=== PATIENT | male | born 1955 | race Caucasian/White ===

== ENCOUNTER 2024-08-05 13:11 | Outpatient (CLI) | payer MEDICARE, SELFPAY ==
--- NOTE | ~2024-08-05 | PE_ITS ---
EXAMINATION: PET_PETPSMAST_PT DATE: 08/05/2024 15:47 INDICATION: Prostate cancer TECHNIQUE: 5.144 mCi of Illucix Ga-68([id number]) was administered i.v. Low dose computed shante graphy (CT) images were acquired from the base of the brain to the base of the brain to the proximal thighs for attenuation correction and anatomic localization. Positron emission tomography (PET) image s were acquired in the same distribution beginning 86 minutes after injection. Images including fused PET/CT images were reconstructed in axial, coronal, and sagittal planes. Automated exposure control technique was employed. The dose-length product was 1142.24mGy-cm. COMPARISON: None FINDINGS: Head/neck: Typical pattern of symmetric physiologic increased activity in the lacrimal, parotid and submandibula r glands as well as along the mucosa of the nasal and oral cavities, pharynx and hypopharynx. No path ologically enlarged cervical lymphadenopathy or suspicious foci of increased uptake in the visualized head or neck. Chest: Respiratory motion and mild scattered atelectasis in the bilateral lungs. No suspicious pulmonary nod ules, pneumonia, pulmonary edema or pleural effusion. Borderline heart size. Atherosclerotic coronary artery calcification. No pericardial effusion. Aortic valve repair. Thoracic aorta is normal in lottie carroll. No pathologically enlarged or PMSA avid thoracic lymphadenopathy. Abdomen/pelvis/proximal thighs: Physiologic renal accumulation and excretion of activity in the kidneys, bladder and along portions o f ureters. For millimeter nonobstructing stone at the upper pole of the left kidney. Prostatomegaly w ith couple regions of asymmetric increased activity in the larger and slightly more intense anteroinf eriorly with right-sided predominance and maximal SUV of 4.8 and smaller left posterolateral region w ith maximal SUV of 4.3 consistent with primary prostate cancer. Normal degree and slightly heterogeno us pattern of increased uptake throughout the liver and spleen without radiologic correlate or domina nt PSMA avid lesion. The gallbladder, pancreas and bilateral adrenal glands are normal. Moderate upta ke scattered throughout the bowels with typical duodenal and proximal jejunal predominance and withou t radiologic correlate, also likely physiologic. There is prominent scattered diverticulosis with taina cending and sigmoid colon predominance without adjacent inflammatory stranding to suggest diverticuli tis. Normal appendix. No other abnormal foci of increased uptake or pathologically enlarged lymphaden opathy in the abdomen, pelvis or proximal thighs. Vascular stent extending from the distalmost right common femoral to the proximal superficial femoral artery. Musculoskeletal: Extensive bridging a nearly bridging osteophytes at multiple levels the cervical, thoracic and lumbar spine consistent with diffuse idiopathic skeletal hyperostosis (DISH). No suspicious lytic, blastic or abnormally PSMA avid bone lesions identified. Small focus of likely extravasated uptake at the sit e of injection at the right antecubital fossa. IMPRESSION: 1. Couple small regions of mild increased activity in the prostate consistent with primary prostate c ancer. No lesion suspicious for metastatic disease. Reviewed, dictated and finalized at location B. NURSE IMPRESSION: 1. Couple small regions of mild increased activity in the prostate consistent w ith primary prostate cancer. No lesion suspicious for metastatic disease.
--- OUTSIDE RECORDS SUMMARY | 2024-08-05 15:04 | XMS_ITS | Encounter Summary ---
Author Organization [facility] Healthcare Address [address] [place] [address] Care Team Providers Care Scarifier Operator Name Role Phone Ludmila Turpin MD Primary Care Provider + [phone] Alon Rich MD Unavailable [phone] Esau Sykes Unavailable Unavail able Monster Kline MD Unavailable [phone] Esau Thompson OD Unavailable [phone] Carlos Galarza MD Unavailable Brandee Albright MD Unavailable [phone] Taylor Serna MD Unavailable [phone] Adrian Theodore MD Unavailable Cong Zuniga MD Unavailable [phone] Calista Galvez MD Unavailable [phone] Ivan Orozco MD Unavailable [phone] Symone Sue MD Unavailable Mihir Henson OD Unavailable [phone] Carlos Frias DO Unavailable [phone] Triny Granados MD Unavailable Triny Granados MD Unavailable [phone] Miguel Angel Man MD PhD Unavailable [phone] Judson Foster Unavailable [phone] Reason for Visit * Reason Onset Date Comments Scheduling Appointments 01/20/2021 confirme d dexa Encounter Details Date Type Department Care Team (Late st Contact Info) Description 01/20/2021 Telephone [facility] [address] [place] [id number] Fatmata Wisdom RT Scheduling Appointments (confirmed dexa) Social History Tobacco Use Types Packs/Day Years Used Date Smoking Tobacco: Never Smokeless Tobacco: Never Alcohol Use Standard Drinks/Week Comments Yes 0 (1 standard drink = 0.6 oz pur e alcohol) ocassional PHQ-2 Answer Date Recorded PHQ-2 Total Score (If total score is 3 or more points, staff should administer the PHQ-9) 0 10/28/2020 Sex and Gender Information Value Date Recorded Sex Assigned at Not on file Legal Sex Male 12:05 PM SHRIMP HEADER Gender Identity Male 04/25/2020 6:16 AM SHRIMP HEADER Sexual Orientation Straight 04/25/2020 6: 16 AM SHRIMP HEADER 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 Not on file Not on file Not on file documented as of this encounter Plan of Treatment Not on file documented as of this encounter Visit Diagnoses Not on filedocumented in this encounter Care Teams Scarifier Operator Relationship Specialty Start Date End Date Ludmila Turpin MD PCP - General 10/14/11 Alon Rich MD Consulting Physician Cardiovascular Disease 07/06/17 1 07/13/21 Esau Sykes Gastroenterology 07/06/17 12/13/22 Monster Kline MD [address] [facility] [address] [place] [address] Thoracic Surgery 07/06/17 Esau Thompson OD [address] [place] [address] Ophthalmology 07/10/17 12/13/22 Carlos Galarza MD [address] [place] [address] Cardiology 07/10/17 Brandee Albright MD [address] [place] [address] Referring Physician Dermatology 01/16/19 Taylor Serna MD [address] [place] [address] Consulting Physician Neurosurgery 10/28/20 11/01/21 Adrian Theodore MD [address] [place] [address] Consulting Physician Pain Management 04/30/21 Cong Zuniga MD [address] [place] [address] Referring Physician Neurosurgery 11/02/21 12/13/22 Calista Galvez MD [address] [place] [address] Consulting Physician Bone Health 11/02/21 Ivan Orozco MD [address] [place] [address] Consulting Physician Urology 05/13/22 07/31/24 Symone Sue MD [address] [place] [address] [address] Consulting Physician Gastroenterology 12/14/22 [place] GeenaMARCO sanchez [address] [place] [address] Optometry 12/14/22 Carlos Frias DO [address] [place] [address] Consulting Physician Neurosurgery 12/14/22 Triny Granados MD [address] [place] [address] Consulting Physician Urology 07/29/24 Triny Granados MD [address] [place] [address] Consulting Physician Urology 08/01/24 Miguel Angel Man MD PhD [address] [facility] DEPT NEUROLOGICAL SURGERY [place], [place] [id number] Consulting Physician Neurosurgery 08/01/24 Judson Foster PA [address] [facility] [address] [place], [place] [id number] Physician Boy'S Adviser Neurosurgery 08/01/24 documented as of this encounter
--- OUTSIDE RECORDS SUMMARY | 2024-08-05 15:04 | XMS_ITS | Encounter Summary ---
Author Organization [facility] Address [address] [place] [address] Care Team Providers Care Lamps Tester And Inspector Name Role Phone Ludmila Turpin MD Primary Care Provider + [phone] Monster Kline MD Unavailable [phone] Carlos Galarza MD Unavailable Brandee Albright MD Unavailable [phone] Adrian Theoodre MD Unavailable Calista Galvez MD Unavailable [phone] Ivan Orozco MD Unavailable [phone] Symone Sue MD Unavailable Sixto Geenadaniel LARA Unavailable [phone] Carlos Frias DO Unavailable [phone] Triny Granados MD Unavailable [phone] Triny Granados MD Unavailable [phone] Miguel Angel Man MD PhD Unavailable Judson Foster Unavailable [phone] Reason for Referral * Diagnostic Imaging (Routine) - Closed Specialty Diagnoses / Procedures Referred By Contac t Referred To Contact Diagnoses Spinal enthesopathy (HCC) Myalgia, other site Procedures Imaging Trigger Point INJ 3+ Muscle Groups () Adrian Theodore MD [address] [place] [address] Phone: tel: fax: [facility] [address] [phone] Referral ID Status Reason Start Date Expiration Date Visits Re quested Visits Authorized [id number] Closed 07/31/2023 10/29/2023 1 1 NESS ACCOUNT EXECUTIVE Encounter Details Date Type Department Care Team (Late st Contact Info) Description 07/12/2023 Telephone [facility] [address] [address], [address] [place] [phone] Adrian Theodore MD [address] [place] [address] Social History Tobacco Use Types Packs/Day Years Used Date Smoking Tobacco: Never Smokeless Tobacco: Never Alcohol Use Standard Drinks/Week Comments Yes 0 (1 standard drink = 0.6 oz pur e alcohol) ocassional AUDIT-C Answer Date Recorded Q1: How often do you have a drink containing alc ohol? 2-4 times a month 05/22/2023 Q2: How many drinks containi ng alcohol do you have on a typical day when you are drinking? 1 or 2 05/22/2023 Q3: How often do you have si x or more drinks on one occasion? Never 05/22/2023 PHQ-2 Answer Date Recorded PHQ-2 Total Score (If total score is 3 or more points, staff should administer the PHQ-9) 0 12/14/2022 Hunger Vital Sign Answer Date Recorded Within the past 12 months, y ou worried that your food would run out before you got the money to buy more. Never true 12/06/19 23 Within the past 12 months, t he food you bought just didn't last and you didn't have money to get more. Never true 12/05/2022 Personal Safety Answer Date Recorded Have you ever been in or are you currently in a harmful physical or emotional relationship or is someone making you feel afraid or unsafe? 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 Author CCM Chronic Pain Care Plan Chronic Care Management No change(03/21 9:12 AM CDT) No Any Fox, RUFINA Note: Problem: Chronic Pain Goals: 1. Minimize further functional decline 2. Maximize quality of life 3. Control pain Strategies: - Activity/exercise program recommendation - Conservative stepwise pain medicine strategy with multi-disciplinary approach - Recommend healthy lifestyle strategies and compensatory methods as needed Reduce the likelihood of falling Lifestyle Improving( 8:02 AM CDT) No Any Fox RN Note: Below are four things you can do to prevent falls: Begin an exercise program to improve your leg strength & balance Ask your doctor or pharmacist to review your medicines Get annual eye check-ups & update your eyeglasses Make your home safer by: Removing clutter & tripping hazards Putting railings on all stairs & adding grab bars in the bathroom Having good lighting, especially on stairs Contact your local community or senior center for information on exercise, fall prevention programs, or options for improving home safety. documented as of this encounter Results * Imaging Trigger Point INJ 3+ Muscle Groups () (07/31/2023 8:16 AM BUSINESS ACCOUNT EXECUTIVE) Narrative [facility] - 07/31/2023 8:30 AM BUSINESS ACCOUNT EXECUTIVE The images from this study are not interpreted by Radiology. Please refer to the physician's procedure / OR operative note. us Adrian Theodore MD IMG PAIN MGMT PROCEDURES Final Result Performing Organization Address City/State/[facility] Co de Phone Number RAD_[email or web address] documented in this encounter Visit Diagnoses Diagnosis Spinal enthesopathy (HCC)- Primary Spinal enthesopathy Myalgia, other site Left shoulder pain, unspecified chronicity- Primary Spinal enthesopathy (HCC) Spinal enthesopathy Myalgia, other site documented in this encounter Care Teams Lamps Tester And Inspector Relationship Specialty Start Date End Date Ludmila Turpin MD PCP - General 10/14/11 Monster Kline MD [address] [place] [address] Thoracic Surgery 07/06/17 Carlos Galarza MD [address] [place] [address] Cardiology 07/10/17 Brandee Albright MD [address] [place] [address] Referring Physician Dermatology 01/16/19 Adrian Theodore MD [address] [place] [address] Consulting Physician Pain Management 04/30/21 Calista Galvez MD [address] [place] [address] Consulting Physician Bone Health 11/02/21 Ivan Orozco MD [address] [place] [address] Consulting Physician Urology 05/13/22 07/31/24 Symone Sue MD [address] [place] [address] [address] Consulting Physician Gastroenterology 12/14/22 Mihir Henson OD [address] [place] [address] Optometry 12/14/22 Carlos Frias DO [address] [place] [address] Consulting Physician Neurosurgery 12/14/22 Triny Granados MD [address] [place] [address] Consulting Physician Urology 07/29/24 Triny Granados MD [address] [place] [address] Consulting Physician Urology 08/01/24 Miguel Angel Man [place] PhD [address] [facility] [place] [address] Consulting Physician Neurosurgery 08/01/24 Judson Foster PA [address] [facility] [address] [place] [address] Physician Frame Expander Neurosurgery 08/01/24 documented as of this encounter
--- OUTSIDE RECORDS SUMMARY | 2024-08-05 15:04 | XMS_ITS | Clinical Summary ---
Author Organization [facility] Address [address] [facility] [place] [address] Care Team Providers Care Lab Associate Name Role Phone Eneida Turpin MD Primary Care Provider [phone] Source Comments [facility],non-owned Affiliates and Associated Physician Practices is amultiple site organization consisting of ambulatory clinics and hospital sitesin [place], [place], [place] and [place]. This disclosure is being madepursuant to the Care Everywhere program and may not contain all information available regarding this patient. Last updated 18.[facility] Allergies Active Allergy Reactions Criticality Noted Date Comments Acetaminophen 05/19/2014 Medications * Be aware that medications may not be up to date on this document. Alwaysverify current medications with the patient. Medication Sig Dispensed Refills Start Date End Date Status carvedilol (COREG) 3.125 MG tablet Take 3.125 mg by mouth 2 times daily with morning and evening meal. Active clopidogrel (PLAVIX) 75 MG tablet Take 75 mg by mouth once daily. Active lisinopril (PRINIVIL;ZESTRIL) 5 MG tablet Take 5 mg by mouth once daily. Active atorvastatin (LIPITOR) 40 MG tablet Take 40 mg by mouth at bedtime. Active aspirin (ASPIRIN) 325 MG tablet Take 325 mg by mouth once daily. Active Vitamin D3 (CHOLECALCIFEROL) 2000 UNITS CAPS capsule Take 2,000 Units by mouth once daily. Active gabapentin (NEURONTIN) 300 MG capsuleIndications: Insomnia Take 1-2 Caps by mouth at bedtime. 60 Cap 6 05/19/2014 Active meloxicam (MOBIC) 7.5 MG tabletIndications:B ack pain Take 1-2 Tabs by mouth once daily. for 7 days to treat flare ups of pain and inflammation Repeat as needed or call Dr Geronimo if not better 30 Tab 6 05/19/2014 Active Active Problems No known active problems Social History Tobacco Use Types Packs/Day Years Used Date Smoking Tobacco: Never Smokeless Tobacco: Never Tobacco Cessation:Counseling Given: No Alcohol Use Standard Drinks/Week Comments No 0 (1 standard drink = 0.6 oz pur e alcohol) Sex and Gender Information Value Date Recorded Sex Assigned at Not on file Gender Identity Not on file Sexual Orientation Not on file Last Filed Vital Signs Vital Sign Reading Time Taken Comments Blood Pressure 110/60 09/03/2014 1:43 PM CDT Pulse 75 09/03/2014 1:43 PM CDT Temperature - - Respiratory Rate - - Oxygen Saturation - - Inhaled Oxygen Concentration - - Weight 100.7 kg (222 lb) 09/03/2014 1:43 PM CDT Height 180.3 cm (5' 11 ) 09/03/2014 1:43 PM CDT Body Mass Index 30.96 09/03/2014 1:43 PM CDT Plan of Treatment Health Maintenance Due Date Last Done Comments COLOGUARD (AGES 45-75) - COLON CA SCREENING 1954 COLON MONITORING 1954 COLONOSCOPY - COLON CA SCREENING 1954 CT COLONOGRAPHY - COLON CA SCREENING 1954 Colorectal Cancer Screening 1954 FIT - COLON CA SCREENING 1954 FLEX SIG - COLON CA SCREENING 1954 HEPATITIS C SCREENING 07/12/1972 DTAP/TDAP/TD VACCINES (1 - Tdap) 1973 PNEUMOCOCCAL VACCINE 50+ (1 of 1 - PCV) 2004 ZOSTER VACCINE (1 of 2) 2004 COVID-19 VACCINE (4 - 2023- season) 2024 04/26/2021, 09/02/2020, 08/13/2020 INFLUENZA VACCINE (#1) 2024 , 03/12/2019, 02/24/2017, Additional history exists DEPRESSION SCREENING 06/12/2024 Respiratory Syncytial Virus (RSV) Vaccine Pt: or over 60 yrs (1 - 1-dose 75+ series) 2029 HEPATITIS B VACCINE Aged Out No longe r eligible based on patient's age to complete this topic HIB VACCINE Aged Out No longer eligi ble based on patient's age to complete this topic HPV VACCINE Aged Out No longer eligi ble based on patient's age to complete this topic MENINGOCOCCAL (Group B) VACCINE Aged Out No longer eligible based on patient's age to complete this topic MENINGOCOCCAL VACCINE Aged Out No tyrel cayetano eligible based on patient's age to complete this topic Care Teams Lab Associate Relationship Specialty Start Date End Date Eneida Turpin MD [address] [place] [phone] PCP - General Internal Medicine 05/19/14
--- OUTSIDE RECORDS SUMMARY | 2024-08-05 15:04 | XMS_ITS | Referral Summary ---
Author Organization [facility] Address [address] [place] [address] Care Team Providers Care Fine Chemicals Operator Name Role Phone Eneida Turpin MD Primary Care Provider [phone] Source Comments [facility],non-[facility] Affiliates and Associated Physician Practices is amultiple site organization consisting of ambulatory clinics and hospital sitesin [place], [place], [place] and [place]. This disclosure is being madepursuant to the Care Everywhere program and may not contain all information available regarding this patient. Last updated 18.[facility] Allergies Active Allergy Reactions Criticality Noted Date [...] 09/03/2014 1:43 PM CDT Plan of Treatment Not on file Care Teams Fine Chemicals Operator Relationship Specialty Start Date End Date Eneida Turpin MD [address] [place] [phone] PCP - General Internal Medicine 05/19/14
--- OUTSIDE RECORDS SUMMARY | 2024-08-05 15:04 | XMS_ITS | Patient Health Summary ---
Author Organization [facility] Address [address] [facility] [place] [address] Care Team Providers Care Blast Setter Name Role Phone Eneida Turpin MD Primary Care Provider [phone] Note from [facility],non-owned Affiliates and Associated Physician Practices is amultiple site organization consisting of ambulatory clinics and hospital sitesin [place], [place], [place] and [place]. This disclosure is being madepursuant to the Care Everywhere program and may not contain all information available regarding this patient. Last updated 18.[facility] Allergies * Acetaminophen Medications * Be aware that medications may not be up to date on this document. Alwaysverify current medications with the patient. * carvedilol (COREG) 3.125 MG tablet Take 3.125 mg by mouth 2 times daily with morning and evening meal. * clopidogrel (PLAVIX) 75 MG tablet Take 75 mg by mouth once daily. * lisinopril (PRINIVIL;ZESTRIL) 5 MG tablet Take 5 mg by mouth once daily. * atorvastatin (LIPITOR) 40 MG tablet Take 40 mg by mouth at bedtime. * aspirin (ASPIRIN) 325 MG tablet Take 325 mg by mouth once daily. * Vitamin D3 (CHOLECALCIFEROL) 2000 UNITS CAPS capsule Take 2,000 Units by mouth once daily. * gabapentin (NEURONTIN) 300 MG capsule(Started 05/19/2014) Take 1-2 Caps by mouth at bedtime. 6 refills left * meloxicam (MOBIC) 7.5 MG tablet(Started 05/19/2014) Take 1-2 Tabs by mouth once daily. for 7 days to treat flare ups of pain and inflammation Repeat asneeded or call Dr Geronimo if not better 6 refills left Active Problems No known active problems Social [...] Mass Index 30.96 09/03/2014 1:43 PM CDT Procedures * HLA TYPING B27(Performed 05/19/2014) Performed for Back pain * C-REACTIVE PROTEIN(Performed 05/19/2014) Performed for Back pain * ERYTHROCYTE SEDIMENTATION RATE(Performed 05/19/2014) Performed for Back pain Results * C-REACTIVE PROTEIN (05/19/2014 2:39 PM GLASS DEPOSITION TENDER) Pathologist [facility] C-Reactive Protein 1.0 0.0 - 4.9 mg/L [facility] INSURANCE BILL Blood specimen (specimen) BLOOD SPECIMEN / Unknown 05/19/2014 2:39 PM GLASS DEPOSITION TENDER 05/19/2014 7:32 PM GLASS DEPOSITION TENDER Narrative Resulting Agency Comment [address] [id number] Joaquin Geronimo MD LAB - CHEMISTRY AFSHIN SHI [facility] INSURANCE BILL * HLA TYPING B27 (05/19/2014 2:39 PM GLASS DEPOSITION TENDER) Pathologist [facility] HLA-B27 Negative [facility] INSURANCE BILL Comment: HLA-B*27 Negative [facility] Lab CLIA ID Number [id number] . This test was performed using PCR (Polymerase Chain Reaction)/SSOP (Sequence Specific Oligonucleotide Probes) technique. SBT (Sequence Based Typing) and/or SSP (Sequence Specific Primers) may be used as supplemental methods when necessary. Please contact [facility] Customer Service at if you have any questions. . Director of HLA Laboratory Dr Andrew Cueto, PhD Blood specimen (specimen) BLOOD SPECIMEN / Unknown 05/19/2014 2:39 PM GLASS DEPOSITION TENDER 05/19/2014 7:32 PM GLASS DEPOSITION TENDER Narrative Resulting Agency Comment [facility] [address] [facility] [id number] Joaquin Geronimo MD LAB - CHEMISTRY ORDE RABMARTÍNEZ [facility] INSURANCE BILL * SED RATE WESTERGREN (05/19/2014 2:39 PM GLASS DEPOSITION TENDER) Erythrocyte Sedimentation Rate Westergren 2 0 - 30 mm/hr [facility] INSURANCE BILL Blood specimen (specimen) BLOOD SPECIMEN / Unknown 05/19/2014 2:39 PM GLASS DEPOSITION TENDER 05/19/2014 7:32 PM GLASS DEPOSITION TENDER Narrative Resulting Agency Comment [facility] [address] [id number] Joaquin Geronimo MD LAB - HEMATOLOGY ORD ERABLES [facility] INSURANCE BILL Care Teams Blast Setter Relationship Specialty Start Date End Date Eneida Turpin MD [address] [place] [phone] PCP - General Internal Medicine 05/19/14
--- OUTSIDE RECORDS SUMMARY | 2024-08-05 15:04 | XMS_ITS | Encounter Summary ---
Author Organization [facility] Address [address] [place] [address] Care Team Providers Care Front End Web Designer Name Role Phone Ludmila Turpin MD Primary Care Provider + [phone] Monster Kline MD Unavailable [phone] Carlos Galarza MD Unavailable Brandee Albright MD Unavailable [phone] Adrian Theodore MD Unavailable Calista Galvez MD Unavailable [phone] Ivan Orozco MD Unavailable [phone] Symone Sue MD Unavailable Mihir Henson OD Unavailable [phone] Carlos Frias DO Unavailable [phone] Triny Granados MD Unavailable [phone] Triny Granados MD Unavailable [phone] Miguel Angel Man MD PhD Unavailable [phone] Judson Foster Unavailable [phone] Reason for Referral * Procedure (Routine) - Closed Specialty Diagnoses / Procedures Referred By Contac t Referred To Contact Diagnoses Myalgia, unspecified site Spinal enthesopathy, site unspecified Procedures TRIGGER POINT INJECTION Adrian Theodore MD [address] [facility] [address] [place] [address] Phone: tel: fax: [facility] [address] [place] [phone] Referral ID Status Reason Start Date Expiration Date Visits Re quested Visits Authorized [id number] Closed 03/24/2024 06/11/2024 1 1 Encounter Details Date Type Department Care Team (Late st Contact Info) Description 03/24/2024 Telephone [facility] [place] [facility] [address] [facility] [address] [place], [place] [id number] Adrian Theodore MD [address] [facility] [address] [place], [place] [id number] Social History Tobacco Use Types Packs/Day Years Used Date Smoking Tobacco: Never Smokeless Tobacco: Never Alcohol Use Standard Drinks/Week Comments Yes 0 (1 standard drink = 0.6 oz pur e alcohol) ocassional AUDIT-C Answer Date Recorded Q1: How often do you have a drink containing alc ohol? 2-3 times a week 12/12/2023 Q2: How many drinks containi ng alcohol do you have on a typical day when you are drinking? 1 or 2 12/12/2023 Q3: How often do you have si x or more drinks on one occasion? Never 12/12/2023 PHQ-2 Answer Date Recorded PHQ-2 Total Score (If total score is 3 or more points, staff should administer the PHQ-9) 0 01/23/2024 Hunger Vital Sign Answer Date Recorded Within [...] making you feel afraid or unsafe? 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 Author CCM Chronic Pain Care Plan Chronic Care Management No change(03/21 9:12 AM CDT) No Any Fox, RN Note: Problem: Chronic Pain Goals: 1. Minimize [...] home safety. documented as of this encounter Visit Diagnoses Diagnosis Spinal enthesopathy (HCC)- Primary Spinal enthesopathy documented in this encounter Care Teams Front End Web Designer Relationship Specialty Start Date End Date Ludmila Turpin MD PCP - General 10/14/11 Monster Kline MD [address] [place] [address] Thoracic Surgery 07/06/17 Carlos Galarza MD [address] [place] [address] Cardiology 07/10/17 Brandee Albright MD [address] [place] [address] Referring Physician Dermatology 01/16/19 Adrian Theodore MD [address] [facility] [address] [place] [address] Consulting Physician Pain Management 04/30/21 Calista Galvez MD [address] [facility] [address] [place] [address] Consulting Physician Bone Health 11/02/21 Ivan Orozco MD [address] [facility] [address] [place] [address] Consulting Physician Urology 05/13/22 07/31/24 Symone Sue MD [address] [place] [address] [address] [place], [place] [address], [place] [address] Consulting Physician Gastroenterology 12/14/22 Mihir Henson OD [address] [place] [address] Optometry 12/14/22 Carlos Frias DO [address] [place] [address] Consulting Physician Neurosurgery 12/14/22 Triny Granados MD [address] [place] [address] Consulting Physician Urology 07/29/24 Triny Granados MD 2 [place] [address] Consulting Physician Urology 08/01/24 Miguel Angel Man MD PhD [address] [facility] DEPT NEUROLOGICAL SURGERY [place], [place] [id number] Consulting Physician Neurosurgery 08/01/24 Judson Foster PA [address] DEPT NEUROLOGICAL SURGERY, [address] [id number] Physician Mobility Scooter Repairer Neurosurgery 08/01/24 documented as of this encounter
--- OUTSIDE RECORDS SUMMARY | 2024-08-05 15:04 | XMS_ITS | Encounter Summary ---
Author Organization [facility] Healthcare Address [address] [place] [address] Care Team Providers Care Permit Technician Name Role Phone Ludmila Turpin MD Primary Care Provider + [phone] Monster Kline MD Unavailable [phone] Carlos Galarza MD Unavailable Brandee Albright MD Unavailable [phone] Adrian Theodore MD Unavailable Calista Galvez MD Unavailable [phone] Ivan Orozco MD Unavailable [phone] Symone Sue MD Unavailable Mihir Henson OD Unavailable [phone] Carlos Frias DO Unavailable [phone] Triny Granados MD Unavailable [phone] Triny Granados MD Unavailable [phone] Miguel Angel Man MD PhD Unavailable [phone] Judson Foster Unavailable [phone] Encounter Details Date Type Department Care Team (Late st Contact Info) Description 07/10/2023 Telephone [facility] at [facility] [address] [facility] [address], [address] [place] [phone] Adrian Theodore MD [address] [facility] [address] [place] [address] Social History Tobacco Use Types Packs/Day Years [...] on file Legal 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 Author CCM Chronic Pain Care Plan Chronic Care Management No change(03/21 9:12 AM CDT) No Any Fox RN Note: Problem: Chronic Pain Goals: 1. Minimize further functional decline 2. Maximize quality of life 3. Control pain Strategies: - Activity/exercise program recommendation - Conservative stepwise pain medicine strategy with multi-disciplinary approach - Recommend healthy lifestyle strategies and compensatory methods as needed Reduce the likelihood of falling Lifestyle Improving( 8:02 AM CDT) Any Fung RN Note: Below are four things you [...] on stairs Contact your local community or [facility] for information on exercise, fall prevention programs, or options for improving home safety. documented as of this encounter Visit Diagnoses Not on filedocumented in this encounter Care Teams Permit Technician Relationship Specialty Start Date End Date Ludmila Turpin MD PCP - General 10/14/11 Monster Kline MD [address] [facility] [address] [place] [address] Thoracic Surgery 07/06/17 Carlos Galarza MD [address] [place] [address] Cardiology 07/10/17 Brandee Albright MD [address] [place] [address] Referring Physician Dermatology 01/16/19 Adrian Theodore MD [address] [address] Consulting Physician Pain Management 04/30/21 Calista Galvez MD [address] [facility] [address] [place] [address] Consulting Physician Bone Health 11/02/21 Ivan Orozco MD [address] [facility] [address] [place] [address] Consulting Physician Urology 05/13/22 07/31/24 Symone Sue MD [address] [place] [address] [address] Consulting Physician Gastroenterology 12/14/22 Mihir Henson OD [address] [place] [address] Optometry 12/14/22 Carlos Frias DO [address] [place] [address] Consulting Physician Neurosurgery 12/14/22 Triny Granados MD 2 [place] [address] Consulting Physician Urology 07/29/24 Triny Granados MD 2 [place] [address] Consulting Physician Urology 08/01/24 [place] Man [place] PhD [address] [facility] [place] [address] Consulting Physician Neurosurgery 08/01/24 Judson Foster PA [address] DE[address] NEUROLOGICAL SURGERY, [address] [address] Physician Ditcher Operator Neurosurgery 08/01/24 documented as of this encounter
--- OUTSIDE RECORDS SUMMARY | 2024-08-05 15:04 | XMS_ITS | Encounter Summary ---
Author Organization [facility] Healthcare Address [address] [place] [address] Care Team Providers Care Medical Chief Technician Name Role Phone Ludmila Turpin MD Primary Care Provider + [phone] Monster Kline MD Unavailable Carlos Galarza MD Unavailable Brandee Albright MD Unavailable [phone] Adrian Theodore MD Unavailable Calista Galvez MD Unavailable [phone] Ivan Orozco MD Unavailable [phone] Symone Sue MD Unavailable Mihir Henson OD Unavailable [phone] Carlos Frias DO Unavailable [phone] Triny Granados MD Unavailable [phone] Triny Granados MD Unavailable [phone] Miguel Angel Man MD PhD Unavailable Judson Foster Unavailable [phone] Encounter Details Date Type Department Care Team (Late st Contact Info) Description 07/28/2024 Results Follow-Up [facility] [address] [place] [address] Ludmila Turpin MD [address] [place] [address] Social History Tobacco Use Types Packs/Day Years Used Date Smoking Tobacco: Never Smokeless Tobacco: Never Alcohol Use Standard Drinks/Week Comments Yes 0 (1 standard drink = 0.6 oz pur e alcohol) ocassional AUDIT-C Answer Date Recorded Q1: How often do you have a drink containing alc ohol? 2-4 times a month 07/23/2024 Q2: How many drinks containi ng alcohol do you have on a typical day when you are drinking? 1 or 2 07/23/2024 Q3: How often do you have si x or more drinks on one occasion? Never 07/23/2024 PHQ-2 Answer Date Recorded PHQ-2 Total Score [...] making you feel afraid or unsafe? 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 documented as of this encounter Visit Diagnoses Not on filedocumented in this encounter Care Teams Medical Chief Technician Relationship Specialty Start Date End Date Ludmila Turpin MD PCP - General 10/14/11 Monster Kline MD [address] [place] [address] Thoracic Surgery 07/06/17 Carlos Galarza MD [address] [facility] [address] [place] [address] Cardiology 07/10/17 Brandee Albright MD [address] [place] [address] Referring Physician Dermatology 01/16/19 Adrian Theodore MD [address] [facility] [address] [place] [address] Consulting Physician Pain Management 04/30/21 Calista Galvez MD [address] [facility] [address] [place] [address] Consulting Physician Bone Health 11/02/21 Ivan Orozco MD [address] [facility] [address] [place] [address] Consulting Physician Urology 05/13/22 07/31/24 Symone Sue MD [address] [place] [address] [address] Consulting Physician Gastroenterology 12/14/22 Mihir Henson OD [address] [place] [address] Optometry 12/14/22 Carlos Frias DO [address] [place] [address] Consulting Physician Neurosurgery 12/14/22 Triny Granados MD 2 [place] [address] Consulting Physician Urology 07/29/24 Triny Granados MD 2 [place] [address] Consulting Physician Urology 08/01/24 [place] Man [place] PhD [address] [facility] DEPT [place]ICAL [place] [address] Consulting Physician Neurosurgery 08/01/24 Judson Foster PA [address] DE[address] NEUROLOGICAL SURGERY, [facility] [address] [place] [address] Physician Site Coordinator Neurosurgery 08/01/24 documented as of this encounter
--- OUTSIDE RECORDS SUMMARY | 2024-08-05 15:04 | XMS_ITS | Encounter Summary ---
Author Organization [facility] Healthcare Address [address] [place] [address] Care Team Providers Care Rf Microwave Engineer Name Role Phone Ludmila Turpin MD Primary Care Provider + [phone] Monster Kline MD Unavailable [phone] Carlos Galarza MD Unavailable Brandee Albright MD Unavailable [phone] Adrian Theodore MD Unavailable Calista Galvez MD Unavailable [phone] Ivan Orozco MD Unavailable [phone] Symone Sue MD Unavailable Mihir Henson OD Unavailable [phone] Carlos Frias DO Unavailable [phone] Triny Granados MD Unavailable [phone] Triny Granados MD Unavailable [phone] Miguel Angel Man MD PhD Unavailable [phone] Judson Foster Unavailable [phone] Encounter Details Date Type Department Care Team (Late st Contact Info) Description 08/02/2023 Telephone [facility] [place] [facility] [address] 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 documented as of this encounter Visit Diagnoses Not on filedocumented in this encounter Care Teams Rf Microwave Engineer Relationship Specialty Start Date End Date Ludmila Turpin MD PCP - General 10/14/11 Monster Kline MD [address] [facility] [address] [place] [address] Thoracic Surgery 07/06/17 Carlos Galarza MD [address] [facility] [address] [place] [address] Cardiology 07/10/17 Brandee Albright MD [address] [facility] [address] [place] [address] Referring Physician Dermatology 01/16/19 Adrian Theodore MD [address] [facility] [address] [place] [address] Consulting Physician Pain Management 04/30/21 Calista Galvez MD [address] [facility] [address] [place] [address] Consulting Physician Bone Health 11/02/21 Ivan Orozco MD [address] [facility] [address] [place] [address] Consulting Physician Urology 05/13/22 07/31/24 Symone Sue MD [address] [place] [address] [address] Consulting Physician Gastroenterology 12/14/22 Mihir Henson OD [address] [place] [address] Optometry 12/14/22 Carlos Frias DO [address] [place] [address] Consulting Physician Neurosurgery 12/14/22 Triny Granados MD 2 [place] [address] Consulting Physician Urology 07/29/24 Triny Granados MD [address] [place] [address] Consulting Physician Urology 08/01/24 [place] Man [place] PhD [address] [facility] DEPT [place] [address] Consulting Physician Neurosurgery 08/01/24 Judson Foster PA [address] DEPT NEUROLOGICAL SURGERY, [address] [address] Physician Television News Reporter Neurosurgery 08/01/24 documented as of this encounter
--- OUTSIDE RECORDS SUMMARY | 2024-08-05 15:04 | XMS_ITS | Referral Summary ---
Author Organization [facility] [address] Address [address] [place] [address] Phone Care Team Providers Care Glassware Engraver Name Role Phone Ludmila Mabry MD Primary Care Provider + [phone] Monster Kline MD Unavailable [phone] Carlos Galarza MD Unavailable Brandee Albright MD Unavailable [phone] Adrian Theodore MD Unavailable Calista Galvez MD Unavailable [phone] Symone Sue MD Unavailable Mihir Henson OD Unavailable [phone] Carlos Frias DO Unavailable [phone] Triny Granados MD Unavailable [phone] Triny Granados MD Unavailable [phone] Miguel Angel Man MD PhD Unavailable Judson Foster Unavailable [phone] Encounters Date Type Department Care Team Description 08/01/2024 11:30 AM CABIN FURNISHINGS INSTALLER Office Visit [facility] [address] [place] [address] Ludmila Mabry MD BPH with elevated PSA (Primary Dx); Prostate cancer (HCC); DISH (diffuse idiopathic skeletal hyperostosis); Spinal stenosis of lumbar region with neurogenic claudication; Lumbar foraminal stenosis; Class 1 obesity with serious comorbidity and body mass index (BMI) of 30.0 to 30.9 in adult, unspecified obesity type; Ischemic heart disease due to coronary artery obstruction (CMS/HCC) (HCC); S/p TAVR (transcatheter aortic valve replacement), bioprosthetic; S/P AVR (aortic valve replacement) and aortoplasty; Multiple-type hyperlipidemia; Other osteoporosis without current pathological fracture; Prediabetes; Immunization counseling 07/31/2024 1:12 PM CABIN FURNISHINGS INSTALLER - 07/31/2024 11:59 PM CABIN FURNISHINGS INSTALLER Hospital Encounter [facility] Imaging [address] [address] Lumbar radiculopathy Discharge Disposition: Discharge to home or self care 07/31/2024 1:12 PM CABIN FURNISHINGS INSTALLER - 07/31/2024 11:59 PM CABIN FURNISHINGS INSTALLER Hospital Encounter [facility] Imaging [address] [address] Lumbar radiculopathy Discharge Disposition: Discharge to home or self care 07/29/2024 Telephone [facility] [address] [address], [address] [place] [address] Adrian Theodore MD 2 week post op call 07/29/2024 Telephone [facility] [address] [place] [address] Joe Juarez RN 07/28/2024 Results Follow-Up [facility] [address] [place] [address] Ludmila Mabry MD 07/26/2024 8:05 AM CABIN FURNISHINGS INSTALLER Lab [facility] Laboratory [address] [place] [address] Elevated PSA; Ischemic heart disease; Medication monitoring encounter; Other osteoporosis without current pathological fracture; Obesity (BMI 30-39.9) 07/23/2024 11:05 AM CABIN FURNISHINGS INSTALLER - 07/23/2024 11:55 AM CABIN FURNISHINGS INSTALLER Surgery [facility] Operating Room [address] [place] [address] Triny Granados MD TRANSRECTAL ULTRASOUND FUSION GUIDED PROSTATE BIOPSY 07/23/2024 10:51 AM CABIN FURNISHINGS INSTALLER Anesthesia Event [facility] Operating Room [address] [place] [address] Christiano Carney MD Reynolds, Raza Akins MD 07/23/2024 8:37 AM CABIN FURNISHINGS INSTALLER - 07/23/2024 12:56 PM CABIN FURNISHINGS INSTALLER Hospital Encounter [facility] Operating Room 1 [place] [address] Triny Granados MD Elevated PSA Discharge Disposition: Discharge to home or self care 07/16/2024 Orders Only [facility] [address] [facility] 5th [place] [address] [place] [address] Calista Galvez MD Osteopenia of multiple sites (Primary Dx) 07/15/2024 7:50 AM CABIN FURNISHINGS INSTALLER - 07/15/2024 11:59 PM CABIN FURNISHINGS INSTALLER Hospital Encounter [facility] at [address], [address] [place] [address] Adrian Theodore MD Cervicalgia (Primary Dx); Myalgia Discharge Disposition: Discharge to home or self care 07/11/2024 Telephone [facility] Neurosurgery [address] [place] [address] Medical Office Building [address] [place] [address] Judson Foster PA 07/11/2024 9:33 AM CABIN FURNISHINGS INSTALLER - 07/11/2024 11:59 PM CABIN FURNISHINGS INSTALLER Hospital Encounter [facility] [address] [place] [address] [address] [place] [address] Lumbar pain Discharge Disposition: Discharge to home or self care 07/11/2024 11:00 AM CABIN FURNISHINGS INSTALLER Office Visit [facility] Neurosurgery [address] [place] [address] Medical Office Building [address] [place] [address] Judson Foster PA Lumbar radiculopathy 07/08/2024 Orders Only [facility] [id number] [place] [address] [address] [place] [phone] Margarito Galarza MD S/P TAVR (transcatheter aortic valve replacement) (Primary Dx) 07/08/2024 2:15 PM CABIN FURNISHINGS INSTALLER Office Visit [facility] [id number] [place] [address] [address] [place] [address] Margarito Galarza MD S/p TAVR (transcatheter aortic valve replacement), bioprosthetic (Primary Dx); Ischemic heart disease due to coronary artery obstruction (CMS/HCC) (HCC); Mixed hyperlipidemia; S/P ascending aortic aneurysm repair 07/08/2024 1:00 PM CABIN FURNISHINGS INSTALLER Ancillary Procedure [facility] [id number] [place] [address] [address] [place] [phone] S/p TAVR (transcatheter aortic valve replacement), bioprosthetic 07/05/2024 Orders Only [facility] [address] [facility] Medical Office Building [address] [place] [address] Miguel Angel Man MD PhD Lumbar pain (Primary Dx) 06/21/2024 Telephone [facility] [address] [place] [phone] Ludmila Mabry MD 06/21/2024 Telephone [facility] at [facility] [address] [facility] [address], [address] [place] [address] Adrian Theodore MD POST CALL 06/20/2024 8:57 AM CABIN FURNISHINGS INSTALLER - 06/20/2024 11:59 PM CABIN FURNISHINGS INSTALLER Hospital Encounter [facility] Imaging and Radiology [address] [place] [address] Elevated prostate specific antigen (PSA) Discharge Disposition: Discharge to home or self care 06/19/2024 Telephone [facility] Scheduling [address] [place], [place] [id number] Chanel Horta 06/07/2024 Telephone [facility] at [address], [address] [place] [phone] Adrian Theodore MD 06/07/2024 9:34 AM CABIN FURNISHINGS INSTALLER - 06/07/2024 11:59 PM CABIN FURNISHINGS INSTALLER Hospital Encounter [facility] at [address] [place] [phone] Adrian Theodore MD Lumbar radiculopathy (Primary Dx); Myalgia Discharge Disposition: Discharge to home or self care 06/06/2024 Telephone [facility] at [address], [address] [place] [phone] Adrian Theodore MD Eliquis hold verification 05/08/2024 8:50 AM CABIN FURNISHINGS INSTALLER Lab [facility] [address] [place] [address] from Last 3 Months Allergies Active Allergy Reactions Criticality Noted Date Comments Acetaminophen Other (See comments) Low Reaction: ELEVATES LIVER ENZYMES, unable to metabolize Tylenol Duloxetine Dizziness Low 08/19/2020 Difficulty concentrating, difficulty with vision Gabapentin Fatigue Low 10/28/2020 100 mg does not work, 200 mg cause fatigue Prochlorperazine Other (See comments) Low Reaction: NASAL CONGESTION, Tramadol Hallucinations Medium 05/13/2022 Developed complex auditory hallucinations Medications cholecalciferol (VITAMIN D-3) 2,000 unit capsule take 1 by Oral route every day 90 3 012 Active taz-[id number]-[id number] -wkc-ggkb-yip 600 mg calcium- 800 unit-50 mg tablet Take 1,200 mg by mouth daily Active atorvastatin (Lipitor) 20 mg tabletIndications :Ischemic heart disease due to coronary artery obstruction (CMS/HCC) (HCC),Multiple-ty pe hyperlipidemia Take 1 tablet (20 mg total) by mouth nightly 90 tablet 2 024 Active fluticasone propionate (FLONASE) 50 mcg/actuation nasal sprayIndications: Chronic rhinitis Administer 2 sprays into each nostril daily as needed for allergies 1 each 024 Active ipratropium (Atrovent) 21 mcg (0.03 %) nasal sprayIndications: Chronic rhinitis Administer 2 sprays into each nostril 2 (two) times a day as needed for rhinitis 30 mL 024 Active pregabalin (LYRICA) 25 mg capsule TAKE 2 CAPSULES BY MOUTH EVERY MORNING BEFORE BREAKFAST AND TAKE 3 CAPSULES BY MOUTH EVERY NIGHT 150 capsule 3 025 Active baclofen (LIORESAL) 20 mg tablet Take 1 tablet (20 mg total) by mouth 3 (three) times a day 180 tablet 2 025 Active apixaban (ELIQUIS) 5 mg tabletIndications :Valve in valve TAVR Take 1 tablet (5 mg total) by mouth every 12 (twelve) hours 60 tablet 025 Active aspirin 81 mg chewable tabletIndications :Ischemic heart disease due to coronary artery obstruction (CMS/HCC) (HCC),S/P AVR (aortic valve replacement) and aortoplasty Take 1 tablet (81 mg total) by mouth daily 100 tablet 3 025 Active lisinopriL (PRINIVIL,ZESTRIL ) 5 mg tabletIndications :Ischemic heart disease due to coronary artery obstruction (CMS/HCC) (HCC) Take 1 tablet (5 mg total) by mouth nightly 90 tablet 2 025 Active nitroglycerin (NITROSTAT) 0.4 mg SL tabletIndications :Ischemic heart disease due to coronary artery obstruction (CMS/HCC) ([facility]) Place 1 tablet under the tongue every 5 minutes as needed for chest pain; May repeat every 5 minutes for up to 3 doses. 25 tablet 025 Active tamsulosin (Flomax) 0.4 mg extended release capsuleIndication s:BPH with elevated PSA Take 1 capsule (0.4 mg total) by mouth daily 90 capsule [address] (CYMBALTA) 20 mg capsuleIndication s:DISH (diffuse idiopathic skeletal hyperostosis) Take 3 capsules (60 mg total) by mouth daily 1 in the morning and 2 at night 90 capsule 1 020 2020 Discontinued lisinopriL (PRINIVIL,ZESTRIL ) 5 mg tabletIndications :Ischemic heart disease due to coronary artery obstruction (CMS/HCC) (HCC) Take 1 tablet (5 mg total) by mouth nightly 90 tablet 2 024 2024 Discontinued(R eorder) nitroglycerin (NITROSTAT) 0.4 mg SL tabletIndications :Ischemic heart disease due to coronary artery obstruction (CMS/HCC) (HCC) Place 1 tablet under the tongue every 5 minutes as needed for chest pain; May repeat every 5 minutes for up to 3 doses. 25 tablet 11 024 2024 Discontinued(R eorder) tamsulosin (Flomax) 0.4 mg extended release capsuleIndication s:BPH with elevated PSA Take 1 capsule (0.4 mg total) by mouth daily 90 capsule 3 024 2024 Discontinued(R eorder) apixaban (ELIQUIS) 5 mg tabletIndications :Valve in valve TAVR Take 1 tablet (5 mg total) by mouth every 12 (twelve) hours 180 tablet 2 024 2024 Discontinued(R eorder) aspirin 81 mg chewable tabletIndications :S/P AVR (aortic valve replacement) and aortoplasty,Ische wagner heart disease due to coronary artery obstruction (CMS/HCC) (HCC) Take 1 tablet (81 mg total) by mouth daily 100 tablet 3 024 2024 Discontinued(R eorder) Active Problems Problem Noted Date Diagnosed Date Prostate cancer 07/29/2024 Overview (07/29/2024): New diagnosis July 25, 2024 Dr. Granados present on multiple core biopsies lesion score E. Prostate, right lateral apex, biopsy: - Adenocarcinoma, Neal score 7 (3+4), 10% Pattern 4, Grade group 2, involving 1 of 1 core, measuring 1 mm in combined dimension, 10% of total biopsy tissue. G. Prostate, left lateral base, biopsy: - Adenocarcinoma, [place] score 7 (4+3), 90% Pattern 4, Grade group 3, involving 1 of 1 core, measuring 2 mm in combined dimension, 20% of total biopsy tissue. M. Prostate, region of interest 1, biopsy: - Adenocarcinoma, [place] score 7 (4+3), 60% Pattern 4, Grade group 3, involving 2 of 4 cores, measuring 4 mm in combined dimension, 10% of total biopsy tissue. Microscopic Description: In order to further assess for invasive carcinoma, a PIN4 immunohistochemical cocktail was performed with adequate controls on blocks A, B, C, D, E, F, G, H, I, J, K, L, M, and N and shows loss of the myoepithelial cell layer with overexpression of AMACR in the areas of invasive carcinoma. 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 History of adenomatous polyp of colon 06/20/2023 Overview (06/20/2023): Colonoscopy (+) tubular adenoma x2 recheck [address] Sue Spinal enthesopathy 05/22/2023 Family history of colon cancer 03/06/2023 Encounter for screening colonoscopy 03/06/2023 Prediabetes 11/02/2021 Other osteoporosis without current pathological fracture 02/09/2021 Overview (11/02/2021): The DEXA August 2021 on a new machine at [facility] T-score spine not done because of-, Hip-1.3, femoral neck -2.3. Wrist -2.6 DEXA (+) January 2021 AP LUMBAR SPINE L1-L4: Total BMD is 1.023 g/cm2 T-score is -0.6 LEFT HIP: Total BMD is 0.847 g/cm2 T-score is -1.2 Femoral neck BMD is 0.639 g/cm2 T-score is -2.1 long-term current use of anticoagulant DISH (diffuse idiopathic skeletal hyperostosis) 06/16/2020 Chronic rhinitis 07/09/2017 BPH with elevated PSA 07/09/2017 Overview (06/20/2023): Evaluated by Dr. Orozco. Prostate MRI (-). PSA range between 2 and 4.5. Treated for BPH. Obesity (BMI 30-39.9) 01/03/2017 S/P ascending aortic aneurysm repair 10/26/2013 Overview (09/14/2016): Hx of thoracic aortic aneurysm repair Mixed hyperlipidemia 10/26/2013 Overview (09/14/2016): Hyperlipidemia LDL goal < 70 Assessment & Plan (07/08/2024 4:01 PM CABIN FURNISHINGS INSTALLER): Continue atorvastatin. Assessment & Plan (10/18/2022 12:52 PM CDT): Continue Atorvastatin. S/P AVR (aortic valve replacement) and aortoplas ty 10/26/2013 Overview (06/20/2023): H/O aortic valve replacement with tissue graft by Dr. KLINE with a ascending aortic aneurysm repair and 3 vessel coronary bypass >>OVERVIEW FOR AORTIC ROOT ANEURYSM (HCC) WRITTEN ON 06/20/2023 10:34 PM BY LUDMILA MABRY MD Repaired surgically by Dr. KLINE 2011 Assessment & Plan (10/18/2022 12:51 PM CDT): Echo shows mild prosthetic , Annual echos for follow up. Assessment & Plan (06/20/2023 10:34 PM CABIN FURNISHINGS INSTALLER): >>ASSESSMENT AND PLAN FOR S/P AVR (AORTIC VALVE REPLACEMENT) AND AORTOPLASTY WRITTEN ON 10/19/2021 11:10 AM BY MARGARITO GALARZA MD Normal functioning bioprosthetic AVR Follow up Echo in 1 year. >>ASSESSMENT AND PLAN FOR AORTIC ROOT ANEURYSM (HCC) WRITTEN ON 10/19/2021 11:09 AM BY MARGARITO GALARZA MD No Aortic Root aneurysm by echo. Assessment & Plan (06/20/2023 10:34 PM CABIN FURNISHINGS INSTALLER): >>ASSESSMENT AND PLAN FOR S/P AVR (AORTIC VALVE REPLACEMENT) AND AORTOPLASTY WRITTEN ON 10/20/2020 1:21 PM BY MARGARITO GALARZA MD AVR is functioning normally RTC 1 year with Echo. >>ASSESSMENT AND PLAN FOR AORTIC ROOT ANEURYSM (HCC) WRITTEN ON 10/20/2020 1:20 PM BY MARGARITO GALARZA MD Aortic Root by echo is stable. Ischemic heart disease due t o coronary artery obstruction (CMS/HCC) 10/26/2013 Overview (07/06/2017): Right coronary stent Dr. Rich 08/23/2011 10/24/[address] KLINE 1. Excision of the aortic valve, replacement with a 25 mm bovine pericardial bioprosthesis, model 3300 TFX, serial number [id number]. 2.Replacement of the ascending aorta from just above the commissures and the undersurface of the aortic arch with a 26 mm collagen-impregnatedDacron graft. 3. Saphenous vein graft sequentially to the major diagonal and to the terminal marginal branch of the circumflex coronary artery, left internal mammary artery graft to the anterior descending coronary artery (total 3distal anastomoses). Assessment & Plan (07/08/2024 4:01 PM CABIN FURNISHINGS INSTALLER): Asymptomatic. Assessment & Plan (10/17/2023 4:16 PM CDT): The patient has no symptoms of angina. His coronary status will be re-evaluated as part of the TAVR evaluation Assessment & Plan (10/18/2022 12:52 PM CDT): No angina. Continue ASA. Assessment & Plan (10/19/2021 11:08 AM CDT): Stable, No symptoms of angina, No changes Resolved Problems Problem Noted Date Diagnosed Date Resolved Date Aortic valve stenosis 10/17/20232023 Assessment & Plan (10/17/2023 4:15 PM CDT): The patient by echocardiogram today has severe aortic stenosis of his bioprosthetic aortic valve. I recommend evaluation for possible TAVR to include cardiac catheterization, CT TAVR and consult by the adult valvular heart team. Osteopenia of both hips 12/14/2022 01/0 02/2024 Overview (12/14/2022): Follow-up Najma considering treatment Dysphagia, oropharyngeal phase 08/19/2020 04/30/2021 Assessment & Plan (03/05/2021 9:17 AM CDT): The patient has substantial anterior cervical osteophytes that are likely contributing to his dysphagia. I cannot completely determine why cold water seems to give him some much trouble, but I hypothesis size that the mucosa overlying the large osteophyte at C2-C3 may be thin enough that he is extra sensitive to cold. I have recommended a modified barium swallow study in order to better determine causes of his swallowing dysfunction. Degenerative disc disease, cervical 08/19/2020 04/30/2021 Chronic right-sided low back pain without sciatica 07/29/2020 04/30/2021 Cervical radiculopathy - Left 07/29/2020 12/14/2022 Cervicalgia 07/29/2020 04/30/2021 Coronary artery disease invo lving [place] coronary artery of [place] heart without angina pectoris 10/29/2019 04/30/2021 Assessment & Plan (10/20/2020 1:20 PM CDT): No angina. History of percutaneous coronary intervention 10/29/19 20 06/20/2023 Chronic sinusitis 04/23/2019 04/30/2021 Assessment & Plan (04/23/2019 11:49 AM CABIN FURNISHINGS INSTALLER): CT Sinus Continue Flonase and Atrovent daily Add Sinus Rinse daily Follow up once CT Sinus available to discuss surgical options Blood allergy testing - call with results Head of Bed elevation 4 inches Allergic rhinitis 04/23/2019 04/30/2021 Assessment & Plan (04/23/2019 11:49 AM CABIN FURNISHINGS INSTALLER): CT Sinus Continue Flonase and Atrovent daily Add Sinus Rinse daily Follow up once CT Sinus available to discuss surgical options Blood allergy testing - call with results Head of Bed elevation 4 inches Deviated nasal septum 04/23/20192020 Assessment & Plan (04/23/2019 11:50 AM CABIN FURNISHINGS INSTALLER): CT Sinus History of heart attack 10/26/201312/11 Overview (09/14/2016): Myocardial infarction of inferoposterior wall Presence of stent in coronary artery 10/26/2013 01/03/2017 Overview (09/14/2016): Stented coronary artery Vitamin D deficiency 10/26/2013 021 Overview (09/14/2016): Vitamin D deficiency Immunizations Immunization Administration Dates Next Due Influenza, Quad, Adjuvantate d, Intramuscular 04/07/2022 Influenza, Quadrivalent, Hig h Dose, Preservative Free, Intrr 03/30/2023,04/30/2021,04/07/2020 Influenza, Quadrivalent, Spl it, Intramuscular 04/12/2016 Influenza, Split 03/20/2013 Influenza, Trivalent, High D ose, Split, Preservative Free, Intramuscular 04/12/2024 Influenza, Trivalent, IM (MDV) 02/24/2015 Influenza, Unspecified 03/26/2024,2019,03/12/2019,02/24 Pfizer SARS-CoV-2 Monovalent Vaccination (12+ Yrs) PURPLE 04/26/2021,09/02/2020,08/13/2020 Pneumococcal Conjugate PCV 13 07/10/2017 Pneumococcal Polysaccharide PPV23 10/25/2019 Tdap 03/01/2012 Social History Tobacco Use Types Packs/Day Years Used Date Smoking Tobacco: Never Smokeless Tobacco: Never Tobacco Cessation:Counseling Given: Not Answered Alcohol Use Standard Drinks/Week Comments Yes 0 [...] on file Legal Sex Male 12:05 PM CABIN FURNISHINGS INSTALLER Gender Identity Male 04/25/2020 6:16 AM CABIN FURNISHINGS INSTALLER Sexual Orientation Straight 04/25/2020 6: 16 AM CABIN FURNISHINGS INSTALLER 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 Not on file Not on file Not on file Last Filed Vital Signs Vital Sign Reading Time Taken Comments Blood Pressure 106/60 08/01/2024 12:39 PM CABIN FURNISHINGS INSTALLER Pulse 59 08/01/2024 12:39 PM CABIN FURNISHINGS INSTALLER Temperature 36.3 C (97.3 F) 08/01/2024 12:39 PM CABIN FURNISHINGS INSTALLER Respiratory Rate 16 08/01/2024 12:39 PM CABIN FURNISHINGS INSTALLER Oxygen Saturation 97% 08/01/2024 12:39 PM CABIN FURNISHINGS INSTALLER Inhaled Oxygen Concentration - - Weight 97.6 kg (215 lb 3.2 oz) 08/01/2024 12:39 PM CABIN FURNISHINGS INSTALLER Height 177.8 cm (5' 10 ) 08/01/2024 12:39 PM CABIN FURNISHINGS INSTALLER Body Mass Index 30.88 08/01/2024 12:39 PM CABIN FURNISHINGS INSTALLER Plan of Treatment Not on file Goals Goal Patient Goal Type Associated Problems Recent Progress Patient-Stated? Author CCM Chronic Pain Care Plan Chronic Care Management No change(03/21 9:12 AM CDT) Any Fung RN Note: Problem: Chronic Pain Goals: 1. [...] stairs Contact your local community or senior [place] for information on exercise, fall prevention programs, or options for improving home safety. Medical Devices Implanted Type Area Fiction And Nonfiction Author Device Identifier Shelf Expiration Date Model / Serial / Lot [employer] Valve Aortic Trnscath Mainor 3 Ultra Resilia 26mm [id number] - [id number] - [id number] Implanted:Qty: 1 on 12/13/2023 by Alon Rich MD at [facility] Prosthetic Valve [employer] 11/04/2025 [id number] / [id number] / Description:Correct model nu mber [id number] Static magnetic field of 1.5 berny or 3 berny. Maximum spatial gradient field of 2500 gauss/cm (25 T/m) or less. Maximum MR system reported, whole body averaged specific absorption rate (LIA) of 2 W/kg (Normal Operating Mode [employer] Protege Gps Exprt 9mm .079in 20mm 120cm Otw Delivery System Self - [id number] Implanted:Qty: 1 on 12/13/2023 by Alon Rich MD at [facility] Stent Right: Common Femoral Artery Med[employer]onic Inc 02/05/2026 [id number] 9-20-120 / / [id number] [employer] System Closure Repair Femoral Artery Suture Mediated Perclose Prostyle 06542-09 - [id number] Implanted:Qty: 1 on 12/13/2023 by Alon Rich MD at [facility] Right: Common Femoral Artery [employer] 09/09/2025 [id number] / / [id number] [employer] System Closure Repair Femoral Artery Suture Mediated Perclose Prostyle 38379-77 - [id number] Implanted:Qty: 1 on 12/13/2023 by Alon Rich MD at [facility] Right: Common Femoral Artery [employer] 09/09/2025 69412-87 / [id number] [employer] System Closure Repair Femoral Artery Suture Mediated Perclose Prostyle 72888-74 - [id number] Implanted:Qty: 1 on 12/13/2023 by Alon Rich MD at [facility] [employer] 09/09/2025 [id number] / / [id number] [employer] System Closure Repair Femoral Artery Suture Mediated Perclose Prostyle 31926-08 - [id number] Implanted:Qty: 1 on 12/13/2023 by Alon Rich MD at [facility] [employer] 09/09/2025 [id number] / / [id number] [employer] Angio-Seal Vip 6fr Closere Device [id number] - [id number] Implanted:Qty: 1 on 12/13/2023 by Alon Rich MD at [facility] Right: Common Femoral Artery [employer] [id number] / / [employer] Angio-Seal Vip Bondek-Plus 8fr .038in 70cm Hemostatic Latex Free [id number] - [id number] Implanted:Qty: 1 on 12/13/2023 by Alon Rich MD at [facility] Right: Common Femoral Artery [employer] [id number] / / [employer]obar [employer] System Closure Repair Femoral Artery Suture Mediated Perclose Prostyle 45331-22 - [id number] Implanted:Qty: 1 on 12/13/2023 by Alon Rich MD at [facility] Right: Common Femoral Artery [employer]obar Vascular 09/09/2025 [id number] / / [id number] [employer] [facility] Angio-Seal Vip 6fr Closere Device [id number] - [id number] Implanted:Qty: 1 on 12/13/2023 by Alon Rich MD at [facility] Left: Common Femoral Artery [employer] [facility] [id number] / / Procedures Procedure Name Priority Date/Time Associated Diagnosis Comments MRI LUMBAR SPINE WO CONTRAST Schedule Routine, Read Routine (OP Routine) 07/31/2024 2:08 PM CABIN FURNISHINGS INSTALLER Lumbar radiculopathy CT LUMBAR SPINE WO CONTRAST Schedule Routine, Read Routine (OP Routine) 07/31/2024 1:15 PM CABIN FURNISHINGS INSTALLER Lumbar radiculopathy EGFR Routine 07/26/2024 8:03 AM CABIN FURNISHINGS INSTALLER Ischemic heart disease Medication monitoring encounter TSH Routine 07/26/2024 8:03 AM CABIN FURNISHINGS INSTALLER Ischemic heart disease Medication monitoring encounter Other osteoporosis without current pathological fracture Obesity (BMI 30-39.9) PRO B-TYPE NATRIURETIC PEPTIDE Routine 07/26/2024 8:03 AM CABIN FURNISHINGS INSTALLER Ischemic heart disease Medication monitoring encounter CRP, HIGH SENSITIVITY Routine 07/26/2024 8:03 AM CABIN [employer]URNISHINGS INSTALLER Ischemic heart disease Medication monitoring encounter BASIC METABOLIC PANEL Routine 07/26/2024 8:03 AM CABIN [employer]INGS INSTALLER Ischemic heart disease Medication monitoring encounter LIPID PANEL Routine 07/26/2024 8:03 AM CABIN [employer]URNISHINGS INST[employer]ER Ischemic heart disease Medication monitoring encounter PSA DIAGNOSTIC Routine 07/26/2024 8:03 AM CABIN [employer]URNISHINGS INSTALLER Elevated PSA SURGICAL PATHOLOGY Routine 07/23/2024 2: 47 PM CABIN FURNISHINGS INSTALLER Elevated PSA NJ AN ELECTIVE SUPRAGLOTTIC AIRWAY Routine 07/23/2024 11:04 AM CABIN FURNISHINGS INSTALLER URONAV GUIDED PROSTATE BIOPSY 07/23/2024 10:50 AM CABIN FURNISHINGS INSTALLER Elevated PSA Special Needs [facility] CONF#[id number] ECG 12-LEAD STAT 07/23/2024 9:04 AM CABIN FURNISHINGS INSTALLER XR SCOLIOSIS 6 OR MORE VIEWS Schedule Routine, Read Routine (OP Routine) 07/11/2024 9:49 AM CABIN FURNISHINGS INSTALLER Lumbar pain TRANSTHORACIC ECHO (TTE) COMPLETE W DOPPLER/CF WO CONTRAST Routine 07/08/2024 1:54 PM CABIN FURNISHINGS INSTALLER S/p TAVR (transcatheter aortic valve replacement), bioprosthetic MRI PELVIS PROSTATE W WO CONTRAST Schedule Routine, Read Routine (OP Routine) 06/20/2024 10:35 AM CABIN FURNISHINGS INSTALLER Elevated prostate specific antigen (PSA) PAIN MGMT IMAGING LUMBAR/CAUDAL EPIDURAL STEROID INJ Schedule Routine, Read Routine (OP Routine) 06/07/2024 10:40 AM CABIN FURNISHINGS INSTALLER Lumbar radiculopathy PSA SCREEN Routine 05/08/2024 9:41 AM CABIN FURNISHINGS INSTALLER COLONOSCOPY 05/18/2023 10:38 AM CABIN FURNISHINGS INSTALLER HEPATITIS C ANTIBODY Routine 12/21/2016 7:27 AM CDT from Last 3 Months or Most Recently Relevant to Health Maintenance Results * MRI Lumbar Spine WO Contrast (07/31/2024 2:08 PM CABIN FURNISHINGS INSTALLER) Anatomical Region Laterality Modality Spine N/A Magnetic Resonan ce 07/31/2024 2:17 PM CABIN FURNISHINGS INSTALLER Impressions 07/31/2024 5:14 PM CABIN FURNISHINGS INSTALLER Mild degenerative changes of the lumbar spine as described above. Findings are not significantly intervally progressed relative to comparison MRI dated 02/10/2023. Dictated by: Hank Zapata M.D. The radiology attending physician has personally reviewed this study, and had reviewed and/or edited this written report and agrees with it. Electronically signed by: Prasanth Estrada M.D. Narrative 07/31/2024 5:14 PM CABIN FURNISHINGS INSTALLER EXAMINATION: Magnetic resonance imaging (MRI) of the lumbar spine without contrast HISTORY: 69 years-old Male with Low back pain, symptoms persist with > 6 wks treatment. TECHNIQUE: Multiplanar multi-weighted MRI of the lumbar spine was performed without intravenous contrast using the standard protocol. COMPARISON: CT lumbar spine, earlier same day. MRI lumbar spine 02/10/2023. FINDINGS: Subtle retrolisthesis L3 on L4 and L5 on S1, not significantly intervally changed . Modic type II degenerative changes involving the L1-L2 and L2-L3 levels. Modic type I degenerative changes involving the inferior endplate of L2. There are no compression fractures. The conus medullaris terminates at the level of L1-L2. The distal spinal cord signal intensity is normal. Scattered desiccative disc changes with mild loss of intervertebral disc height involving the L2-S1 levels. There are no annular fissures identified. Limited views of the abdomen and pelvis show no soft tissue abnormality. There is normal in caliber with scattered atherosclerosis. L1-L2: The disc is normal in configuration. There is no facet arthropathy. There is no neuroforaminal stenosis. There is no spinal canal stenosis. L2-L3: Mild intervertebral disc height loss. There is no facet arthropathy. There is no neuroforaminal stenosis. There is no spinal canal stenosis. L3-L4: Mild intervertebral disc height loss with circumferential disc bulge. Ligamentum flavum thickening. There is mild bilateral facet arthropathy. There is mild right greater than left neuroforaminal stenosis. There is mild spinal canal stenosis. L4-L5: Mild loss of vertebral disc height with circumferential disc bulge. Ligamentum flavum thickening. There is moderate bilateral facet arthropathy. There is mild bilateral neuroforaminal stenosis. There is mild spinal canal stenosis. L5-S1: Mild loss of intervertebral disc height with circumferential disc bulge. Minimal ligamentum flavum thickening. There is mild bilateral facet arthropathy. There is mild bilateral neuroforaminal stenosis. There is minimal spinal canal stenosis. Procedure Note Prasanth Estrada MD - 07/31/2024 EXAMINATION: Magnetic resonance imaging (MRI) of the lumbar spine without contrast HISTORY: 69 years-old Male with Low back pain, symptoms persist with > 6 wks treatment. TECHNIQUE: Multiplanar multi-weighted MRI of the lumbar spine was performed without intravenous contrast using the standard protocol. COMPARISON: CT lumbar spine, earlier same day. MRI lumbar spine 02/10/2023. FINDINGS: Subtle retrolisthesis L3 on L4 and L5 on S1, not significantly intervally changed . Modic type II degenerative changes involving the L1-L2 and L2-L3 levels. Modic type I degenerative changes involving the inferior endplate of L2. There are no compression fractures. The conus medullaris terminates at the level of L1-L2. The distal spinal cord signal intensity is normal. Scattered desiccative disc changes with mild loss of intervertebral disc height involving the L2-S1 levels. There are no annular fissures identified. Limited views of the abdomen and pelvis show no soft tissue abnormality. There is normal in caliber with scattered atherosclerosis. L1-L2: The disc is normal in configuration. There is no facet arthropathy. There is no neuroforaminal stenosis. There is no spinal canal stenosis. L2-L3: Mild intervertebral disc height loss. There is no facet arthropathy. There is no neuroforaminal stenosis. There is no spinal canal stenosis. L3-L4: Mild intervertebral disc height loss with circumferential disc bulge. Ligamentum flavum thickening. There is mild bilateral facet arthropathy. There is mild right greater than left neuroforaminal stenosis. There is mild spinal canal stenosis. L4-L5: Mild loss of vertebral disc height with circumferential disc bulge. Ligamentum flavum thickening. There is moderate bilateral facet arthropathy. There is mild bilateral neuroforaminal stenosis. There is mild spinal canal stenosis. L5-S1: Mild loss of intervertebral disc height with circumferential disc bulge. Minimal ligamentum flavum thickening. There is mild bilateral facet arthropathy. There is mild bilateral neuroforaminal stenosis. There is minimal spinal canal stenosis. IMPRESSION: Mild degenerative changes of the lumbar spine as described above. Findings are not significantly intervally progressed relative to comparison MRI dated 02/10/2023. Dictated by: Hank Zapata M.D. The radiology attending physician has personally reviewed this study, and had reviewed and/or edited this written report and agrees with it. Electronically signed by: Prasanth Estrada M.D. [facility] MRI PROCEDURES Fin al Result * CT Lumbar Spine WO Contrast (07/31/2024 1:15 PM CABIN FURNISHINGS INSTALLER) Anatomical Region Laterality Modality Spine N/A Computed Tomogra phy 07/31/2024 1:25 PM CABIN FURNISHINGS INSTALLER Impressions 07/31/2024 1:40 PM CABIN FURNISHINGS INSTALLER Mild degenerative changes of the lumbar spine as described above. Findings are not significantly intervally progressed when compared to most recent MRI of the lumbar spine dated 02/10/2023. Dictated by: Hank Zapata M.D. The radiology attending physician has personally reviewed this study, and had reviewed and/or edited this written report and agrees with it. Electronically signed by: Prasanth Estrada M.D. Narrative 07/31/2024 1:40 PM CABIN FURNISHINGS INSTALLER EXAMINATION: CT of the lumbar spine without contrast HISTORY: 69 years-old Male with L/S-spine canal stenosis. TECHNIQUE: CT of the lumbar spine was performed according to the standard protocol without intravenous contrast. COMPARISON: MRI lumbar spine 02/10/2023. FINDINGS: Subtle retrolisthesis L3 on L4 and L5 on S1, not significantly intervally changed. There is no acute fracture. The vertebral bodies are normal in height without compression fractures. Mild intervertebral disc height loss involving the L5-S1 disc. Anterior bridging osteophytes throughout the lumbar spine, most prominent involving the lower thoracic and upper lumbar spine. There is no soft tissue abnormality. Aortic atherosclerosis. L1-L2: The disc is normal in configuration. There is no facet arthropathy. There is no neuroforaminal stenosis. There is no spinal canal stenosis. L2-L3: The disc is normal in configuration. There is no facet arthropathy. There is no neuroforaminal stenosis. There is no spinal canal stenosis. L3-L4: Mild circumferential disc bulge. There is mild right facet arthropathy. There is mild bilateral neuroforaminal stenosis. There is mild spinal canal stenosis. L4-L5: Mild circumferential disc bulge. Ligamentum flavum thickening. There is moderate bilateral facet arthropathy. There is mild bilateral neuroforaminal stenosis. There is mild spinal canal stenosis. L5-S1: Mild intervertebral disc height loss with circumferential disc bulge. Ligamentum flavum thickening. There is mild bilateral facet arthropathy. There is mild bilateral neuroforaminal stenosis. There is no spinal canal stenosis. Procedure Note Prasanth Estrada MD - 07/31/2024 EXAMINATION: CT of the lumbar spine without contrast HISTORY: 69 years-old Male with L/S-spine canal stenosis. TECHNIQUE: CT of the lumbar spine was performed according to the standard protocol without intravenous contrast. COMPARISON: MRI lumbar spine 02/10/2023. FINDINGS: Subtle retrolisthesis L3 on L4 and L5 on S1, not significantly intervally changed. There is no acute fracture. The vertebral bodies are normal in height without compression fractures. Mild intervertebral disc height loss involving the L5-S1 disc. Anterior bridging osteophytes throughout the lumbar spine, most prominent involving the lower thoracic and upper lumbar spine. There is no soft tissue abnormality. Aortic atherosclerosis. L1-L2: The disc is normal in configuration. There is no facet arthropathy. There is no neuroforaminal stenosis. There is no spinal canal stenosis. L2-L3: The disc is normal in configuration. There is no facet arthropathy. There is no neuroforaminal stenosis. There is no spinal canal stenosis. L3-L4: Mild circumferential disc bulge. There is mild right facet arthropathy. There is mild bilateral neuroforaminal stenosis. There is mild spinal canal stenosis. L4-L5: Mild circumferential disc bulge. Ligamentum flavum thickening. There is moderate bilateral facet arthropathy. There is mild bilateral neuroforaminal stenosis. There is mild spinal canal stenosis. L5-S1: Mild intervertebral disc height loss with circumferential disc bulge. Ligamentum flavum thickening. There is mild bilateral facet arthropathy. There is mild bilateral neuroforaminal stenosis. There is no spinal canal stenosis. IMPRESSION: Mild degenerative changes of the lumbar spine as described above. Findings are not significantly intervally progressed when compared to most recent MRI of the lumbar spine dated 02/10/2023. Dictated by: Hank Zapata M.D. The radiology attending physician has personally reviewed this study, and had reviewed and/or edited this written report and agrees with it. Electronically signed by: Prasanth Estrada M.D. [facility] CT PROCEDURES Octavia l Result * eGFR (07/26/2024 8:03 AM CABIN FURNISHINGS INSTALLER) eGFR 67 >=60 mL/min/1. 73 m2 Comment: Interpretive Data Reference Interval Normal >/= 90 mL/min/1.73m2 Mildly decreased* 60 - 89 mL/min/1.73m2 Mildly to moderately decreased 45 - 59 mL/min/1.73m2 Moderately to severely decreased 30 - 44 mL/min/1.73m2 Severely decreased 15 - 29 mL/min/1.73m2 Kidney Failure < 15 mL/min/1.73m2 *Relative to young adult level Estimated glomerular filtration rate is determined by the 2020 CKD-EPI equation recommended by the National Kidney Foundation (A Unifying Approach to GFR Estimation: Recommendations of the NKF-ASK Task Force on Reassessing the Inclusion of Race in Diagnosing Kidney Disease, AKIRAN 2020). The CKD-EPI equation should not be used for patients with unstable renal function and has not been validated in children and those over 70. Current interpretive data was last reviewed 2021. Testing performed by: [facility], [address] [place] [address]., [id number] Blood 07/26/2024 8:03 AM CABIN FURNISHINGS INSTALLER 07/26/2024 4:55 PM CABIN FURNISHINGS INSTALLER us Ludmila Mabry MD LAB BLOOD ORDERABLES Final Result [facility] PENA BLANCA) [address] [facility] [place] [address] * Pro B-type natriuretic peptide (07/26/2024 8:03 AM CABIN FURNISHINGS INSTALLER) NT-proBNP 120 <=300 pg/mL Comment: Interpretive Comments: A. Dyspnea in Acute Care Setting All Ages: < 300 pg/ml, acute heart failure unlikely. < 50 yrs: 300 - 450 pg/ml, further investigation warranted. > 450 pg/ml, acute heart failure likely. 50 - 74 yrs: 300 - 900 pg/ml, further investigation warranted. > 900 pg/ml, acute heart failure likely . > or = 75 yrs: 450 - 1800 pg/ml, further investigation warranted. > 1800 pg/ml, acute heart failure likely. B. Non-acute Setting < 75 yrs < 125 pg/ml, rules out heart failure. > or = 125 pg/ml, further investigation warranted. > or = 75 yrs < 450 pg/ml, rules out heart failure. > or = 450 pg/ml, further investigation warranted. - Knowledge of each individual patient's NT-proBNP range may be more useful than using similar cut-points for every patient. Please note that marked elevations in NT-proBNP levels may be observed in state other than Left Ventricular Congestive Failure, including: acute coronary syndromes, right heart strain/failure (including pulmonary embolism and cor pulmonale), critical illness, renal failure, as well as advanced age. - References: 1. Timothy COLLINS et.al. Eur Heart J. 2006:27:330-337. 2. Andrew RW, Lubin AM. J. AM Emy Cardiol: Cardiovasc Imag. 2009;2: 216- 225. Interpretive Data Last Revised Date: 2018. Testing performed by: [facility], [address] [place] [address]., [id number] Blood 07/26/2024 8:03 AM CABIN FURNISHINGS INSTALLER 07/26/2024 4:25 PM CABIN FURNISHINGS INSTALLER Ludmila Mabry MD LAB BLOOD ORDERABLES Final Result Performing Organization Address City/[facility]/ZIP Co de Phone Number [facility] (JOSE LUIS) 1 [facility] [place] [address] * CRP (cardiac risk) (07/26/2024 8:03 AM CABIN FURNISHINGS INSTALLER) Pathologist [facility] hsCRP 0.51 mg/L Comment: Interpretive data Adult only - values greater than or equal to 10 mg/L are consistent with infection or inflammation. Individuals with evidence of active infection, systemic inflammatory processes, or trauma should not be tested until these conditions have abated. When using HS CRP to assess cardiovascular risk, two measurements should be taken, two weeks apart (averaging results). The CDC/AHA recommended the following HS CRP cut off points (tertiles) for CVD assessment. Adult low risk <1.0 mg/L Average risk 1.0 - 3.0 mg/L High Risk >3.0 mg/L Current interpretive data was last revised on 2018. Testing performed by: [facility], [address] [place] [address]., [id number] Blood 07/26/2024 8:03 AM CABIN FURNISHINGS INSTALLER 07/26/2024 7:46 PM CABIN FURNISHINGS INSTALLER Ludmila Mabry MD LAB BLOOD ORDERABLES Final Result Performing Organization Address City/[facility]/ZIP Co de Phone Number [facility] (JOSE LUIS) 1 [facility] [place] [address] * TSH (07/26/2024 8:03 AM CABIN FURNISHINGS INSTALLER) Thyroid Stimulating Hormone 2.65 0.30 - 4.20 mcIUnit/mL Comment:Testing performed by : [facility], [address] [place] [address]., [id number] Blood 07/26/2024 8:03 AM CABIN FURNISHINGS INSTALLER 07/26/2024 4:25 PM CABIN FURNISHINGS INSTALLER us Ludmila Mabry MD LAB BLOOD ORDERABLES Final Result Performing Organization Address City/[facility] Co de Phone Number [facility] (PENA BLANCA) 1 [facility] [place] [address] * (ABNORMAL) PSA diagnostic (07/26/2024 8:03 AM CABIN FURNISHINGS INSTALLER) PSA-Total 12.00(H) <=6.20 ng/mL Comment: Interpretive Data AGE SEX REFERENCE INTERVAL 0 minutes-150 years Female None 0 minutes-49 years Male None 50-59 years Male 0-3.90 60-69 years Male 0-5.40 70-79 years Male 0-6.20 80-150 years Male 0-6.20 The Jorge Alberto PSA Total assay procedure was used. Results from different manufacturers or methods may not be comparable. Serial testing should be performed using the same method. Current interpretive data last revised 21. Testing performed by: [facility], [address] [place] [address]., [id number] Blood 07/26/2024 8:03 AM CABIN FURNISHINGS INSTALLER 07/26/2024 4:25 PM CABIN FURNISHINGS INSTALLER us Ludmila Mabry MD LAB BLOOD ORDERABLES Final Result Performing Organization Address City/[facility] Co de Phone Number [facility] (JOSE LUIS) 1 [facility] [place] [address] * Lipid panel (07/26/2024 8:03 AM CABIN FURNISHINGS INSTALLER) Cholesterol 103 30 - 199 mg/dL Comment: Interpretive Data Ages < or = 19 years Acceptable: <170 mg/dL Borderline high: 170-199 mg/dL High: >or= 200 mg/dL Ages > or = 20 years Desirable: <200 mg/dL Borderline high: 200-239 mg/dL High: >or= 240 mg/dL Literature References: 1. Expert Panel on Integrated Guidelines for Cardiovascular Health and Risk Reduction in Children and Adolescents. Pediatrics 2011;128:S213 2. NCEP Expert Panel. Circulation 2004;110:227 Current Interpretive Data was last revised on 2018. Testing performed by: [facility], [address] [place] [address]., [id number] Triglycerides 106 <=149 mg/dL [facility] (JOSE LUIS) Comment: Interpretive Data Ages < or = 9 years Acceptable: <75 mg/dL Borderline high: 75-99 mg/dL High: >or= 100 mg/dL Ages 10 to 20 years Acceptable: <90 mg/dL Borderline high: 90-129 mg/dL High: >or= 130 mg/dL Ages > or = 20 years Desirable: <150 mg/dL Borderline high: 150-199 mg/dL High: 200-499 mg/dL Very high: >or= 499 mg/dL Literature References: 1. Expert Panel on Integrated Guidelines for Cardiovascular Health and Risk Reduction in Children and Adolescents. Pediatrics 2011;128:S213 2. NCEP Expert Panel. Circulation 2004;110:227 Current Interpretive Data was last revised on 2018. Testing performed by: [facility], [address] [place] [address]., [address] HDL 46 >=40 mg/dL [facility] (JOSE LUIS) Comment: Interpretive Data Ages < or = 19 years Acceptable: >45 mg/dL Borderline low: 40-45 mg/dL Low: <40 mg/dL Ages > or = 20 years Desirable: >or= 60 mg/dL Low: <40 mg/dL Literature References: 1. Expert Panel on Integrated Guidelines for Cardiovascular Health and Risk Reduction in Children and Adolescents. Pediatrics 2011;128:S213 2. NCEP Expert Panel. Circulation 2004;110:227 Current Interpretive Data was last revised on 2018. Testing performed by: [facility], [address] [place] [address]., [id number] LDL, calculated 37 <=129 mg/dL [facility] (JOSE LUIS) Comment: Interpretive Data Ages < or = 19 years Acceptable: <110 mg/dL Borderline high: 110-129 mg/dL High: >or= 130 mg/dL Ages > or = 20 years Optimal: <100 mg/dL Near optimal: 100-129 mg/dL Borderline high: 130-159 mg/dL High: >160 mg/dL Calculated using the Adonay LDL-C estimating equation. This equation was implemented on 2024. Prior to this date LDL-C was estimated using the Friedewald equation. Literature References: 1. Expert Panel on Integrated Guidelines for Cardiovascular Health and Risk Reduction in Children and Adolescents. Pediatrics 2011;128:S213 2. NCEP Expert Panel. Circulation 2004;110:227 3. Adonay Fernandez et al. DEBORA Cardiol. 2020 October 10;5(5):540-548. doi: 10.1001/jamacardio.2020.0013 Current Interpretive Data was last revised on 2024. Testing performed by: [address] [address] Non-HDL Cholesterol 57 mg/dL [facility] (JOSE LUIS) Comment: Interpretive Data Ages < or = 19 years Acceptable: <120 mg/dL Borderline high: 120-144 mg/dL High: >145 mg/dL Ages > or = 20 years When triglycerides are >200 mg/dL, Non-HDL cholesterol is a secondary target of therapy with treatment goals that are 30 mg/dL greater than the LDL cholesterol target. Literature References: 1. Expert Panel on Integrated Guidelines for Cardiovascular Health and Risk Reduction in Children and Adolescents. Pediatrics 2011;128:S213 2. NCEP Expert Panel. Circulation 2004;110:227 Current Interpretive Data was last revised on 2018. Testing performed by: [address] [address] Chol/HDL ratio 2 [facility] (JOSE LUIS) Comment:Testing performed by : [address] [address] Blood 07/26/2024 8:03 AM CABIN FURNISHINGS INSTALLER 07/26/2024 4:25 PM CABIN FURNISHINGS INSTALLER us Ludmila Mabry MD LAB BLOOD ORDERABLES Final Result [facility] (JOSE LUIS) 1 [facility] Department [place] [address] * Basic metabolic panel (07/26/2024 8:03 AM CABIN FURNISHINGS INSTALLER) Sodium 140 135 - 145 mmol/L Comment:Testing performed by : [facility], [address] [place] [address]., [address] Potassium, pl 4.2 3.3 - 4.9 mmol/L [facility] (JOSE LUIS) Comment:Testing performed by : [facility], [address] [place] [address]., [address] Chloride 104 97 - 110 mmol/L [facility] (JOSE LUIS) Comment:Testing performed by : [facility], [address] [place] [address]., [address] CO2 25 22 - 32 mmol/L [facility] (JOSE LUIS) Comment:Testing performed by : [address], [address] Anion gap 11 2 - 15 mmol/L [facility] (JOSE LUIS) Comment:Testing performed by : [address], [address] BUN 14 6 - 25 mg/dL [facility] (JOSE LUIS) Comment:Testing performed by : [facility], [address] [place] [address], [address] Creatinine 1.17 0.80 - 1.30 mg/dL [facility] (JOSE LUIS) Comment:Testing performed by : [address], [address] Glucose 102 70 - 199 mg/dL [facility] (JOSE LUIS) Comment: Interpretive Data Fasting glucose >/= 126 mg/dl is diagnostic for diabetes. Fasting is defined as no caloric intake for at least 8 hours. Fasting glucose between 100 mg/dl to 125 mg/dl is diagnostic of prediabetes. In a patient with classic symptoms of hyperglycemia or hyperglycemic crisis, a random glucose >/= 200 mg/dl is diagnostic for diabetes. In the absence of unequivocal hyperglycemia, results should be confirmed by repeat testing. The classification and Diagnosis of Diabetes Diabetes Care 2021; 46: S19-S40. Current interpretive data was last revised 2022. Testing performed by: [address] [address] Calcium 9.3 8.5 - 10.3 mg/dL [facility] ([facility]) Comment:Testing performed by : [address] [address] Blood 07/26/2024 8:03 AM CABIN FURNISHINGS INSTALLER 07/26/2024 4:25 PM CABIN FURNISHINGS INSTALLER us Ludmila Mabry MD LAB BLOOD ORDERABLES Final Result [facility] ([facility] [address] [place] [address] [place] [address] * Surgical pathology (07/23/2024 2:47 PM CABIN FURNISHINGS INSTALLER) Tissue (Prostate, Needle Biopsy) 07/23/2024 10:54 AM CABIN FURNISHINGS INSTALLER Tissue (Prostate, Needle Biopsy) 07/23/2024 10:54 AM CABIN FURNISHINGS INSTALLER Tissue (Prostate, Needle Biopsy) 07/23/2024 10:54 AM CABIN FURNISHINGS INSTALLER Tissue (Prostate, Needle Biopsy) 07/23/2024 10:54 AM CABIN FURNISHINGS INSTALLER Tissue (Prostate, Needle Biopsy) 07/23/2024 10:54 AM CABIN FURNISHINGS INSTALLER Tissue (Prostate, Needle Biopsy) 07/23/2024 10:54 AM CABIN FURNISHINGS INSTALLER Tissue (Prostate, Needle Biopsy) 07/23/2024 10:54 AM CABIN FURNISHINGS INSTALLER Tissue (Prostate, Needle Biopsy) 07/23/2024 10:54 AM CABIN FURNISHINGS INSTALLER Tissue (Prostate, Needle Biopsy) 07/23/2024 10:54 AM CABIN FURNISHINGS INSTALLER Tissue (Prostate, Needle Biopsy) 07/23/2024 10:54 AM CABIN FURNISHINGS INSTALLER Tissue (Prostate, Needle Biopsy) 07/23/2024 10:54 AM CABIN FURNISHINGS INSTALLER Tissue (Prostate, Needle Biopsy) 07/23/2024 10:54 AM CABIN FURNISHINGS INSTALLER Tissue (Prostate, Needle Biopsy) 07/23/2024 10:56 AM CABIN FURNISHINGS INSTALLER Tissue (Prostate, Needle Biopsy) 07/23/2024 11:03 AM CABIN FURNISHINGS INSTALLER Narrative [facility] ([facility]) - 07/26/2024 9:49 AM CABIN FURNISHINGS INSTALLER EPIC results best viewed via link to PDF [facility] Department of Pathology [address] [place] [id number] Note to Patients: This report may contain a detailed description of human tissue sent by a health care provider to the laboratory for pathologic evaluation. The content of this report is essential for diagnosis and may provide important critical findings. This information may be unfamiliar to patients to review without a medical professional present. It is advised that the patient review this report in the presence of a health care provider who can answer questions and explain the details. Final Report Patient Name: JORGE L ASHRAF Address: [address] [place] [address] Gender: M : 1955 (Age: 69) Service: Surgery Location: [facility] Hospital #: [id number] Patient Type: [facility] Taken: 07/23/2024 Received: 07/23/2024 Accessioned: 07/23/2024 Reported: 07/26/2024 Physician(s):Triny Tavares MD Diagnosis: A. Prostate, right lateral base, biopsy: - Focal acute prostatitis. B. Prostate, right medial base, biopsy: - Benign prostatic tissue. C. Prostate, right lateral mid, biopsy: - Benign prostatic tissue. D. Prostate, right medial mid, biopsy: - Focal chronic inflammation. E. Prostate, right lateral apex, biopsy: - Adenocarcinoma, [place] score 7 (3+4), 10% Pattern 4, Grade group 2, involving 1 of 1 core, measuring 1 mm in combined dimension, 10% of total biopsy tissue. F. Prostate, right medial apex, biopsy: - Focal acute prostatitis. G. Prostate, left lateral base, biopsy: - Adenocarcinoma, Neal score 7 (4+3), 90% Pattern 4, Grade group 3, involving 1 of 1 core, measuring 2 mm in combined dimension, 20% of total biopsy tissue. H. Prostate, left medial base, biopsy: - Focal acute prostatitis. I. Prostate, left lateral mid, biopsy: - Benign prostatic tissue. J. Prostate, left medial mid, biopsy: - Focal high grade prostatic intraepithelial neoplasia. K. Prostate, left lateral apex, biopsy: - Benign prostatic tissue. L. Prostate, left lateral apex, biopsy: - Benign prostatic tissue. M. Prostate, region of interest 1, biopsy: - Adenocarcinoma, Neal score 7 (4+3), 60% Pattern 4, Grade group 3, involving 2 of 4 cores, measuring 4 mm in combined dimension, 10% of total biopsy tissue. N. Prostate, region of interest 2, biopsy: - Benign prostatic tissue. Ruben Mccord M.D. Report Electronically Reviewed and Signed Out By Ruben Mccord M.D. 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 Clinical History: Elevated PSA. Transrectal ultrasound fusion guided prostate biopsy. Gross Description: The specimen is submitted in fourteen containers labeled JORGE L ASHRAF . A. The first container is labeled right lateral base . It is 1 core of noonan tissue measuring 1.5 cm. Entirely in A. B. The second container is labeled right medial base . It is 1 core of noonan tissue measuring 1.5 cm. Entirely in B. C. The third container is labeled right lateral mid . It is 1 core of noonan tissue measuring 1.2 cm. Entirely in C. D. The fourth container is labeled right medial mid . It is 1 core of noonan tissue measuring 1.5 cm. Entirely in D. E. The fifth container is labeled right lateral apex . It is 1 core of noonan tissue measuring 1 cm. Entirely in E. F. The sixth container is labeled right medial apex . It is 1 core of noonan tissue measuring 1.5 cm. Entirely in F. G. The seventh container is labeled left lateral base . It is 1 core of noonan tissue measuring 1.2 cm. Entirely in G. H. The eighth container is labeled left medial base . It is 1 core of noonan tissue measuring 1.5 cm. Entirely in H. I. The ninth container is labeled left lateral mid . It is 1 core of noonan tissue measuring 1.1 cm. Entirely in I J. The tenth container is labeled left medial mid . It is 1 core of noonan tissue measuring 1.1 cm. Entirely in J. K. The eleventh container is labeled left lateral apex . It is 1 core of noonan tissue measuring 1.0 cm. Entirely in K. L. The twelfth container is labeled left medial apex . It is 1 core of noonan tissue measuring 1.5 cm. Entirely in L. M. The thirteenth container is labeled HANDY location #1 . It is 4 cores of noonan tissue between 0.3 and 1.2 cm. Entirely in M. N. The fourteenth container is labeled HANDY location #2 . It is 4 cores of noonan tissue between 0.7 and 1.2 cm. Entirely in N. T.A. Donnie Briscoe., Gary/Marli Marina M.D. REPORT IMAGES AND SCANNED DOCUMENTS, IF INCLUDED, ONLY VIEWABLE IN PDF VERSION OF REPORT The performance characteristics of some immunohistochemical stains, fluorescence in-situ hybridization tests and immunophenotyping by flow cytometry cited in this report (if any) were determined by the Surgical Pathology Department at [facility] as part of an ongoing quality control microbiology supervisor program and in compliance with federally mandated regulations drawn from the Clinical Laboratory Improvement Act of 1988 (CLIA '88). Some of these tests rely on the use of analyte specific reagents and are subject to specific labeling requirements by the US Food and Drug Administration. Such diagnostic tests may only be performed in a facility that is certified by the Department of Health and Human Services as a high complexity laboratory under CLIA '88. The FDA has determined that such clearance or approval is not necessary. This test is used for clinical purposes. It should not be regarded as investigational or for research. Nevertheless, federal rules concerning the medical use of analyte specific reagents require that the following disclaimer be attached to the report: This test was developed and its performance characteristics determined by the Surgical Pathology Department [facility]. It has not been cleared or approved by the U. S. Food and Drug Administration. Note for decalcified specimens: This assay has not been validated on decalcified tissues. Results should be interpreted with caution given the possibility of false negativity on decalcified specimens Triny Tavares MD LAB PATHOLOGY ORDERABLES Final Result [facility]) [address] [place] [address] * [place] AN ELECTIVE SUPRAGLOTTIC AIRWAY (07/23/2024 11:04 AM CABIN FURNISHINGS INSTALLER) Nancy Chou, INSTRUMENT REPAIRER HELPER - 07/23/2024 11:04 AM CABIN FURNISHINGS INSTALLER Nancy Balderas CRNA 07/23/2024 11:04 AM Airway Patient location: OR Urgency: elective Indications for airway management: anesthesia and airway protection Difficult airway: no Staff: Placed by: INSTRUMENT REPAIRER HELPER: Nancy Balderas CRNA Emergent airway documentation: Risks and benefits discussed: yes Consent obtained: yes Consent given by: patient Airway prep: Preoxygenated: yes Mask difficulty assessment: 0 - not attempted Spontaneous ventilation during airway: present Sedation level during airway: GA Final airway details: Final airway type: supraglottic airway Final supraglottic airway: IGel SGA size: 5 Number of attempts: 1 Christiano Carney MD ANESTHESIA ORDERABLES Fi nal Result * ECG 12 lead (07/23/2024 9:04 AM CABIN FURNISHINGS INSTALLER) 07/23/2024 9:04 AM CABIN FURNISHINGS INSTALLER Narrative [facility] - 07/23/2024 11:29 AM CABIN FURNISHINGS INSTALLER Vent Rate: 67 bpm RR Interval: 887 msec [place] Interval: 213 msec QRS Duration: 107 msec QT Interval: 391 msec QTC Interval: 407 msec P-R-T [place]: 29 - 8 - 42 degrees IMPRESSION: SINUS RHYTHM WITH FIRST DEGREE AV BLOCK WITH OCCASIONAL VENTRICULAR PREMATURE COMPLEXES POSSIBLE LEFT ATRIAL ENLARGEMENT [-0.1mV P WAVE IN V1/V2] LOW QRS VOLTAGE IN PRECORDIAL LEADS [QRS DEFLECTION < 1.0 mV IN CHEST LEADS] POSSIBLE ANTERIOR MYOCARDIAL INFARCTION , PROBABLY OLD [30 ms Q WAVE IN V3/V4, OR R < 0.2 mV IN V4] INFERIOR MYOCARDIAL INFARCTION , PROBABLY OLD [40+ ms Q WAVE AND/OR ST/T ABNORMALITY IN II/aVF] ABNORMAL ECG Compared to prior EKG, PVCs are new ST segment depressions are no longer present Electronically Signed By: Alon Rich MD Raza Painting MD ECG ORDERABLES Final Result [facility] * XR Scoliosis 6 or More Views (07/11/2024 9:49 AM CABIN FURNISHINGS INSTALLER) Anatomical Region Laterality Modality Spine N/A Computed Radiogr aphy 07/11/2024 10:3 6 AM CABIN FURNISHINGS INSTALLER Impressions 07/11/2024 12:47 PM CABIN FURNISHINGS INSTALLER 1. Mild long segment thoracolumbar dextrocurvature with no truncal imbalance. 2. Mild static retrolisthesis of L3 on L4 with mild to moderate multilevel degenerative disc disease most prominent at L2-L3 and L4-L5. Dictated by: Jarad Hernandez MD PHD The radiology attending physician has personally reviewed this study, and had reviewed and/or edited this written report and agrees with it. Electronically signed by: Fernando Bruce M.D. Narrative 07/11/2024 12:47 PM CABIN FURNISHINGS INSTALLER EXAMINATION: XR SCOLIOSIS 6 OR MORE VIEWS HISTORY: Lumbar pain. FINDINGS: 8 exposures of the spine are compared against MRI 02/10/2023. Mild long segment thoracolumbar dextrocurvature. No coronal imbalance. No pelvic obliquity. No sagittal imbalance. Aortic valve prosthesis and median sternotomy wires are noted. Mild retrolisthesis of C3 on C4 with mild to moderate multilevel degenerative cervical disc disease. Mild multilevel thoracic degenerative disc disease with diffuse idiopathic skeletal hyperostosis. Right groin vascular stent. Vascular calcifications. Dedicated views of the lumbar spine demonstrate no acute fracture. Mild retrolisthesis of L3 on L4 which does not change during flexion or extension. Mild to moderate multilevel degenerative disc disease is seen with multiple prominent anterior osteophytes, especially at L2-L3 and L4-L5. Vascular calcifications. Procedure Note Shay Bruce, Fernando Calix MD - 07/11/2024 EXAMINATION: XR SCOLIOSIS 6 OR MORE VIEWS HISTORY: Lumbar pain. FINDINGS: 8 exposures of the spine are compared against MRI 02/10/2023. Mild long segment thoracolumbar dextrocurvature. No coronal imbalance. No pelvic obliquity. No sagittal imbalance. Aortic valve prosthesis and median sternotomy wires are noted. Mild retrolisthesis of C3 on C4 with mild to moderate multilevel degenerative cervical disc disease. Mild multilevel thoracic degenerative disc disease with diffuse idiopathic skeletal hyperostosis. Right groin vascular stent. Vascular calcifications. Dedicated views of the lumbar spine demonstrate no acute fracture. Mild retrolisthesis of L3 on L4 which does not change during flexion or extension. Mild to moderate multilevel degenerative disc disease is seen with multiple prominent anterior osteophytes, especially at L2-L3 and L4-L5. Vascular calcifications. IMPRESSION: 1. Mild long segment thoracolumbar dextrocurvature with no truncal imbalance. 2. Mild static retrolisthesis of L3 on L4 with mild to moderate multilevel degenerative disc disease most prominent at L2-L3 and L4-L5. Dictated by: Jarad Hernandez MD PHD The radiology attending physician has personally reviewed this study, and had reviewed and/or edited this written report and agrees with it. Electronically signed by: Fernando Bruce M.D. us Miguel Angel Man MD PhD IMG XR PROCEDURES Final R esult * TRANSTHORACIC ECHO (TTE) COMPLETE W DOPPLER/CF WO CONTRAST (07/08/2024 1:54 PM CABIN FURNISHINGS INSTALLER) LV EF % CONS SCIMAGE Anatomical Region Laterality Modality Ultrasound 07/08/2024 1:03 PM CABIN FURNISHINGS INSTALLER Narrative 07/08/2024 3:59 PM CABIN FURNISHINGS INSTALLER [place] [employer]- [facility] [id number] [place] [address] Echocardiogram Report Patient Name: JORGE L ASHRAF E : 1955 Study Date: 07/08/2024 1:03:21 PM Gender: M Tech: AG Ref Provider: ALON RICH Height(Cm): 177.8 BSA: Weight(Kg): 96.2 Heart Rate: 60 BP: 119/70 Quality: Good Order Provider: Margarito Galarza PROCEDURES: Echocardiographic Report: Transthoracic echocardiogram with complete 2D, M-Mode, and color Doppler examination. INDICATIONS: TAVR- 26mm and Z95.3 Presence of xenogenic heart valve. MEASUREMENTS: 2D/MM Value Range Doppler Value Range EF Teich 2D 65.0 percent [ 52.0 - 72.0 ] ELIAN Vmax 4.24 cm2 EF Mod BP 65 % [ 52 - 72 ] AV Mean PG 2 mmHg LVIDd 2D 5.06 cm [ 4.20 - 5.80 ] AV Peak Lewis 0.83 m/s [ 1.00 - 1.70 ] LVIDs 2D 3.02 cm [ 2.50 - 4.00 ] AV VTI 18.61 cm LVPWd 2D 0.85 cm [ 0.60 - 1.00 ] LVOT Diam 2.59 cm IVSd 2D 1.01 cm [ 0.60 - 1.00 ] LVOT Peak Lewis 0.67 m/s [ 0.70 - 1.10 ] LVOT VTI 15.73 cm MV E Peak Lewis 1.08 m/s [ 0.60 - 1.30 ] MV A Peak Lewis 0.24 m/s [ 1.00 - 1.20 ] MV Mean PG 2 mmHg MV Decel Time 175 msec [ 104 - 258 ] PV Peak Lewis 0.98 m/s [ 0.40 - 0.80 ] 2D/MM Value Range Doppler Value Range - FINDINGS: Atrial Septum: Normal atrial septum. Left Ventricle: Normal left ventricular size. Normal left ventricular systolic function with no focal wall motion abnormalities. Left ventricular wall thickness upper limits of normal. Ejection fraction is measured at 65 %. Global Strain = -14.3 Left Atrium: The left atrium is normal in size. Right Ventricle: Normal right ventricular size. Normal right ventricular systolic function. Right Atrium: The right atrium is normal in size. Aortic Valve: Peak velocity AOV of 0.8 m/sec. Normal appearing aortic valve bioprosthesis. Mitral Valve: Normal structure of the mitral valve. Pulmonic Valve: Normal structure of the pulmonic valve. Tricuspid Valve: Normal structure of the tricuspid valve. Normal right ventricular systolic pressure. Pericardium: Normal pericardium with no significant pericardial effusion. Aorta: Normal aortic root. IVC: Normal size and normal respiratory collapse consistent with normal right atrial pressure (<5 mmHg). Pulmonary Artery: Normal pulmonary artery size. CONCLUSIONS: Normal left ventricular size. Normal left ventricular systolic function with no focal wall motion abnormalities. Left ventricular wall thickness upper limits of normal. Ejection fraction is measured at 65 %. Global Strain = -14.3. Peak velocity AOV of 0.8 m/sec. Normal appearing aortic valve bioprosthesis. Electronically Signed By: Margarito Galarza MD, [facility] 07/08/2024 3:58:36 PM CABIN FURNISHINGS INSTALLER Procedure Note Margarito Galarza MD - 07/08/2024 [place] [employer]- [facility] [address] [facility] [place] [address] Echocardiogram Report Patient Name: JORGE L ASHRAF E : 1955 Study Date: 07/08/2024 1:03:21 PM Gender: M Tech: AG Ref Provider: ALON RICH Height(Cm): 177.8 BSA: Weight(Kg): 96.2 Heart Rate: 60 BP: 119/70 Quality: Good Order Provider: Margarito Galarza PROCEDURES: Echocardiographic Report: Transthoracic echocardiogram with complete 2D, M-Mode, and color Dopplerexamination. INDICATIONS: TAVR- 26mm and Z95.3 Presence of xenogenic heart valve. MEASUREMENTS: 2D/MM Value Range Doppler ValueRange EF Teich 2D 65.0 percent [ 52.0 - 72.0 ] ELIAN Vmax 4.24cm2 EF Mod BP 65 % [ 52 - 72 ] AV Mean PG 2mmHg LVIDd 2D 5.06 cm [ 4.20 - 5.80 ] AV Peak Lewis 0.83m/s [ 1.00 - 1.70 ] LVIDs 2D 3.02 cm [ 2.50 - 4.00 ] AV VTI 18.61cm LVPWd 2D 0.85 cm [ 0.60 - 1.00 ] LVOT Diam 2.59cm IVSd 2D 1.01 cm [ 0.60 - 1.00 ] LVOT Peak Lewis 0.67m/s [ 0.70 - 1.10 ] LVOT VTI 15.73 cm MV E Peak Lewis 1.08 m/s [ 0.60 - 1.30 ] MV A Peak Lewis 0.24 m/s [ 1.00 - 1.20 ] MV Mean PG 2 mmHg MV Decel Time 175 msec [ 104 - 258 ] PV Peak Lewis 0.98 m/s [ 0.40 - 0.80 ] 2D/MM Value Range Doppler ValueRange - FINDINGS: Atrial Septum: Normal atrial septum. Left Ventricle: Normal left ventricular size. Normal left ventricular systolic functionwith no focal wall motion abnormalities. Left ventricular wall thickness upper limits ofnormal. Ejection fraction is measured at 65 %. Global Strain = -14.3 Left Atrium: The left atrium is normal in size. Right Ventricle: Normal right ventricular size. Normal right ventricular systolicfunction. Right Atrium: The right atrium is normal in size. Aortic Valve: Peak velocity AOV of 0.8 m/sec. Normal appearing aortic valvebioprosthesis. Mitral Valve: Normal structure of the mitral valve. Pulmonic Valve: Normal structure of the pulmonic valve. Tricuspid Valve: Normal structure of the tricuspid valve. Normal right ventricular systolicpressure. Pericardium: Normal pericardium with no significant pericardial effusion. Aorta: Normal aortic root. IVC: Normal size and normal respiratory collapse consistent with normal rightatrial pressure (<5 mmHg). Pulmonary Artery: Normal pulmonary artery size. CONCLUSIONS: Normal left ventricular size. Normal left ventricular systolic functionwith no focal wall motion abnormalities. Left ventricular wall thickness upper limits ofnormal. Ejection fraction is measured at 65 %. Global Strain = -14.3. Peak velocity AOV of 0.8 m/sec. Normal appearing aortic valvebioprosthesis. Electronically Signed By: Margarito Galarza MD, [facility] 07/08/2024 3:58:36 PM CABIN FURNISHINGS INSTALLER us Alno Rich MD CV ECHO PROCEDURES Final Result * MRI Pelvis Prostate W WO Contrast (06/20/2024 10:35 AM CABIN FURNISHINGS INSTALLER) Anatomical Region Laterality Modality Body N/A Magnetic Resonan ce 06/20/2024 11:5 5 AM CABIN FURNISHINGS INSTALLER Impressions 06/20/2024 2:33 PM CABIN FURNISHINGS INSTALLER 1. A lesion in the midline anterior peripheral zone abutting the fibromuscular stroma at the apex is at high suspicion for malignancy with an overall PI-RADS score of 4. No evidence of extraprostatic extension. 2. A lesion in the midline posterior peripheral zone at the mid gland is at high suspicion for malignancy with an overall PI-RADS score of 4. No evidence of extraprostatic extension. Dictated by: Ezio Vo MD, PHD The radiology attending physician has personally reviewed this study, and had reviewed and/or edited this written report and agrees with it. Electronically signed by: Skyler Emmanuel M.D. Narrative 06/20/2024 2:33 PM CABIN FURNISHINGS INSTALLER EXAMINATION: MAGNETIC RESONANCE IMAGING OF THE PELVIS WITHOUT AND WITH CONTRAST HISTORY: 68-year-old with elevated prostate specific antigen. PSA 6.2 on 05/08/2024, previously 4.3 on 10/26/2021 TECHNIQUE: MR imaging of the prostate gland was performed with a torso phased array coil prior to and following administration of intravenous gadolinium. Protocol: Prostate 3T Contrast: gadoterate 20 mL COMPARISON: 02/02/2022 FINDINGS: Prostate volume: 74 cc The prostate transition zone is enlarged with benign prostatic hyperplasia. The prostate was assessed using the PI-RADS version 2.1 scoring system. The following lesions are of at least intermediate suspicion (PI-RADS 3 or greater): Lesion 1: Side: left Location: anterior Zone: peripheral zone abutting fibromuscular stroma Craniocaudal: apex Harper images: series 10, image 58 Size: 0.62 mL; largest axial dimensions 1.3 cm x 1.0 cm x 0.8 cm Extraprostatic extension: - tumor contact length with prostate margin: 15 mm - margin bulge/irregularity: no - rectoprostatic angle obliteration: no - neurovascular bundle asymmetry: no - gross extraprostatic extension: no - overall EPE grade: 0 (no suspicion for pathologic EPE) T2WI score: 4 DWI score: 4 DCE: positive Overall PI-RADS v2.1 assessment: 4 Lesion 2: Side: midline Location: posterior Zone: peripheral zone Craniocaudal: mid gland Harper images: series 10, image 52 Size: 0.41 mL; largest axial dimensions 0.9 x 0.5 x 1.2 cm Extraprostatic extension: - tumor contact length with prostate margin: 8 mm - margin bulge/irregularity: no - rectoprostatic angle obliteration: no - neurovascular bundle asymmetry: no - gross extraprostatic extension: no - overall EPE grade: 0 (no suspicion for pathologic EPE) T2WI score: 4 DWI score: 4 DCE: positive Overall PI-RADS v2.1 assessment: 4 Staging Information: No enlarged lymph nodes are identified. No suspicious osseous lesions are identified. 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 No pelvic ascites. The bladder is nondistended. Colonic diverticulosis partially imaged. Stent in the right common femoral artery. Procedure Note Skyler Emmanuel MD - 06/20/2024 EXAMINATION: MAGNETIC RESONANCE IMAGING OF THE PELVIS WITHOUT AND WITH CONTRAST HISTORY: 68-year-old with elevated prostate specific antigen. PSA 6.2 on 05/08/2024, previously 4.3 on 10/26/2021 TECHNIQUE: MR imaging of the prostate gland was performed with a torso phased array coil prior to and following administration of intravenous gadolinium. Protocol: Prostate 3T Contrast: gadoterate 20 mL COMPARISON: 02/02/2022 FINDINGS: Prostate volume: 74 cc The prostate transition zone is enlarged with benign prostatic hyperplasia. The prostate was assessed using the PI-RADS version 2.1 scoring system. The following lesions are of at least intermediate suspicion (PI-RADS 3 or greater): Lesion 1: Side: left Location: anterior Zone: peripheral zone abutting fibromuscular stroma Craniocaudal: apex Harper images: series 10, image 58 Size: 0.62 mL; largest axial dimensions 1.3 cm x 1.0 cm x 0.8 cm Extraprostatic extension: - tumor contact length with prostate margin: 15 mm - margin bulge/irregularity: no - rectoprostatic angle obliteration: no - neurovascular bundle asymmetry: no - gross extraprostatic extension: no - overall EPE grade: 0 (no suspicion for pathologic EPE) T2WI score: 4 DWI score: 4 DCE: positive Overall PI-RADS v2.1 assessment: 4 Lesion 2: Side: midline Location: posterior Zone: peripheral zone Craniocaudal: mid gland Harper images: series 10, image 52 Size: 0.41 mL; largest axial dimensions 0.9 x 0.5 x 1.2 cm Extraprostatic extension: - tumor contact length with prostate margin: 8 mm - margin bulge/irregularity: no - rectoprostatic angle obliteration: no - neurovascular bundle asymmetry: no - gross extraprostatic extension: no - overall EPE grade: 0 (no suspicion for pathologic EPE) T2WI score: 4 DWI score: 4 DCE: positive Overall PI-RADS v2.1 assessment: 4 Staging Information: No enlarged lymph nodes are identified. No suspicious osseous lesions are identified. 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 No pelvic ascites. The bladder is nondistended. Colonic diverticulosis partially imaged. Stent in the right common femoral artery. IMPRESSION: 1. A lesion in the midline anterior peripheral zone abutting the fibromuscular stroma at the apex is at high suspicion for malignancy with an overall PI-RADS score of 4. No evidence of extraprostatic extension. 2. A lesion in the midline posterior peripheral zone at the mid gland is at high suspicion for malignancy with an overall PI-RADS score of 4. No evidence of extraprostatic extension. Dictated by: Ezio Vo MD, PHD The radiology attending physician has personally reviewed this study, and had reviewed and/or edited this written report and agrees with it. Electronically signed by: Skyler Emmanuel M.D. Triny Tavares MD [facility] MRI PROCEDURES Final Resul t * Imaging Lumbar/Caudal Epidural Steroid INJ (59491) (06/07/2024 10:40 AM CABIN FURNISHINGS INSTALLER) Narrative RAD_PACS[facility] - 06/07/2024 10:40 AM CABIN FURNISHINGS INSTALLER The images from this study are not interpreted by Radiology. Please refer to the physician's procedure / OR operative note. Adrian Theodore MD IMG PAIN MGMT PROCEDURES Final Result Performing Organization Address City/[facility]/ZIP Co de Phone Number RAD_PACS[facility] * (ABNORMAL) PSA screen (05/08/2024 9:41 AM CABIN FURNISHINGS INSTALLER) PSA-Total 6.19(H) <=5.40 ng/mL Comment: Interpretive Data AGE SEX REFERENCE INTERVAL 0 minutes-150 years Female None 0 minutes-49 years Male None 50-59 years Male 0-3.90 60-69 years Male 0-5.40 70-79 years Male 0-6.20 80-150 years Male 0-6.20 The Jorge Alberto PSA Total assay procedure was used. Results from different manufacturers or methods may not be comparable. Serial testing should be performed using the same method. Current interpretive data last revised 21. Testing performed by: [facility], [address] [place] [address]., [id number] Blood 05/08/2024 9:41 AM CABIN FURNISHINGS INSTALLER 05/08/2024 9:41 AM CABIN FURNISHINGS INSTALLER Triny Tavares MD LAB BLOOD ORDERABLES Final Res ult Performing Organization Address City/[facility] Co de Phone Number [facility] Department of Laboratories [place] [phone] * COLONOSCOPY (05/18/2023 10:38 AM CABIN FURNISHINGS INSTALLER) Anatomical Region Laterality Modality Other Narrative Procedure Note Symone Sue MD - 05/18/2023 10:38 AM CST [facility] Patient Name: Jorge L Ashraf Procedure Date: 05/18/2023 10:38 AM Date of : 1955 Admit Type: Outpatient Age: 67 Gender: Male Attending MD: Symone Sue M.D. Room: [facility] ENDOSCOPY ROOM 2 Note Status: Finalized Patient Profile: This is a 67 year old male hx of HLD, AVR, CAD on DAPT, cardiomyopathy here for colon cancerscreening. Last colonoscopy 2012 with normal findings. Son was colon cancer in his 30s. Procedure: Colonoscopy Indications: Screening in patient at increased risk: Familyhistory of 1st-degree relative with colorectal cancerbefore age 60 years Referring MD: Ludmila Mabry M.D. Providers: Symone Sue M.D. Impression: - Preparation of the colon was fair. - Hemorrhoids found on perianal exam. - Two 6 to 8 mm polyps in the descending colon andin the transverse colon, removed with a cold snare. Resected and retrieved. - Diverticulosis in the left colon. - External and internal hemorrhoids. Recommendation: - Patient has a contact number available for emergencies. The signs and symptoms of potential delayed complications were discussed with thepatient. Return to normal activities tomorrow. Written discharge instructions were provided to thepatient. - Discharge patient to home (with escort). - Resume previous diet. - Resume Plavix (clopidogrel) at prior dose in 3days. - Await pathology results. - Repeat colonoscopy in 1 year with 2 day prep dueto fair prep for surveillance based on pathologyresults. - Return to primary care physician as previously scheduled. Medicines: Monitored Anesthesia Care Complications: No immediate complications. Estimated Blood Loss: Estimated blood loss was minimal. Procedure: Pre-Anesthesia Assessment: - Prior to the procedure, a History and Physicalwas performed, and patient medications and allergieswere reviewed. The patient is competent. The risks and benefits of the procedure and the sedation optionsand risks were discussed with the patient. Allquestions were answered and informed consent was obtained. Patient identification and proposed procedure were verified by the physician, the sprinkler helper and the biofuels production technician in the endoscopy suite. Mental Status Examination: normal. Prophylactic Antibiotics: The patient does not require prophylactic antibiotics. Prior Anticoagulants: The patient has taken Plavix (clopidogrel), last dose was 5 days prior to procedure. After reviewing the risks and benefits,the patient was deemed in satisfactory condition to undergo the procedure. The anesthesia plan was touse monitored anesthesia care (MAC). Immediately priorto administration of medications, the patient was re-assessed for adequacy to receive sedatives. The heart rate, respiratory rate, oxygen saturations, blood pressure, adequacy of pulmonary ventilation,and response to care were monitored throughout the procedure. The physical status of the patient was re-assessed after the procedure. The benefits, risks and alternatives of theprocedure and sedation were discussed and informed consentwas obtained. All questions were answered. Please referto the signed informed consent document in the medical record. The bowel preparation used was Miralax and bisacodyl tablets via split dose instruction. The scope was passed under direct vision. The Pediatric Colonoscope PCF-H190L [id number] was introducedthrough the anus and advanced to the the cecum, identifiedby appendiceal orifice and ileocecal valve. The colonoscopy was performed without difficulty. The patient tolerated the procedure well. The qualityof the bowel preparation was fair. Bowel prep was administered using a split dose. Findings: Hemorrhoids were found on perianal exam. Two sessile polyps were found in the descending colon and transverse colon. The polyps were 6 to 8 mm in size. These polyps were removedwith a cold snare. Resection and retrieval were complete. Multiple small and large-mouthed diverticula were found in the left colon. External and internal hemorrhoids were found during retroflexion and during endoscopy. Symone Sue M.D. 05/18/2023 2:01:25 PM Number of Addenda: 0 Note Initiated On: 05/18/2023 10:38 AM Procedure Code(s): --- Professional --- 10787, Colonoscopy, flexible; with removal of tumor(s), polyp(s), or other lesion(s) by snare technique --- Technical --- 99655, Colonoscopy, flexible; with removal of tumor(s), polyp(s), or other lesion(s) by snare technique Diagnosis Code(s): --- Professional --- Z80.0, Family history of malignant neoplasm of digestive organs K64.8, Other hemorrhoids D12.4, Benign neoplasm of descending colon D12.3, Benign neoplasm of transverse colon (hepatic flexure orsplenic flexure) K57.30, Diverticulosis of large intestine without perforation orabscess without bleeding --- Technical --- Z80.0, Family history of malignant neoplasm of digestive organs K64.8, Other hemorrhoids D12.4, Benign neoplasm of descending colon D12.3, Benign neoplasm of transverse colon (hepatic flexure orsplenic flexure) K57.30, Diverticulosis of large intestine without perforation orabscess without bleeding CPT copyright 2020 [employer]. All rights reserved. The codes documented in this report are preliminary and upon block captain reviewmay be revised to meet current compliance requirements. Recognized by the [place] [employer] for promoting quality in endoscopy us Symone Sue MD ENDOSCOPY PROCEDURES Final Resul t * Hepatitis C antibody (12/21/2016 7:27 AM CDT) Hep C Ab NON-REACTI VE NON-REACTI VE [facility] SIGNAL TO CUT-OFF 0.10 <1.00 [facility] 12/21/2016 7:27 AM CDT 12/21/2016 7:28 AM CDT Narrative [facility] - 12/22/2016 6:40 AM CDT FASTING:YES Resulting Agency Comment Performing Organization Information: Site ID: [place] Name: [facility] Address: [address] [place] [phone] Director: Vivek Fulton D.O., MPH us Ludmila Mabry MD LAB MICROBIOLOGY - GENERAL ORDERABLES Final Result [facility]ELI VelazquezNAYELI robledo from Last 3 Months or Most Recently Relevant to Health Maintenance Insurance [facility] MEDICARE SOLUTIONS MEDICARE SOLUTIONS MEDICARE SOLUTIONS Advance Directives For more information, please contact: [phone] Documents on File Type Date Recorded 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 10/24/2020 DNR POLST FORM ADVANCE DIRECTIVE 02/10/2011 POWER OF A [employer] * Full Code (Latest Code Status on File) Date Activated Date Inactivated Comments 10/25/2023 10:41 AM 10/25/2023 6:52 PM * Full Code Date Activated Date Inactivated Comments 05/18/2023 10:11 AM 05/18/2023 6:50 PM * Full Code Date Activated Date Inactivated Comments 05/18/2023 10:11 AM 05/18/2023 10:11 AM Care 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 Relationship Specialty Start Date End Date Ludmila Mabry MD PCP - General 10/14/11 Monster Kline MD [address] [place] [address] Thoracic Surgery 07/06/17 Carlos Galarza MD [address] [place] [address] Cardiology 07/10/17 Brandee Albright MD [address] [facility] [address] [place] [address] Referring Physician Dermatology 01/16/19 Adrian Theodore MD [address] [facility] [address] [place] [address] Consulting Physician Pain Management 04/30/21 Calista Galvez MD [address] [facility] [address] [place] [address] Consulting Physician Bone Health 11/02/21 Symone Sue MD [address] [place] [address] DR CHO [facility] [place] [address] Consulting Physician Gastroenterology 12/14/22 Mihir Henson OD [address] [place] [address] Optometry 12/14/22 Carlos Frias DO [address] [place] [address] Consulting Physician Neurosurgery 12/14/22 Triny Granados MD [address] [place] [address] Consulting Physician Urology 07/29/24 Triny Granados MD [address] [place] [address] Consulting Physician Urology 08/01/24 [place] [address] [place] [address] Consulting Physician Neurosurgery 08/01/24 Judson Foster PA [address]UR[address]ICAL SURGERY, [facility] [address] [place] [address] Physician Head [employer] Sawyer Neurosurgery 08/01/24
--- OUTSIDE RECORDS SUMMARY | 2024-08-05 15:05 | XMS_ITS | Clinical Summary ---
Author Organization [facility] [address] Address [address] [place] [address] Phone Care Team Providers Care Mattress Maker Name Role Phone Ludmila Mabry MD Primary Care Provider [phone] Monster Kline MD Unavailable [phone] Carlos Galarza MD Unavailable Brandee Albright MD Unavailable [phone] Adrian Theodore MD Unavailable Calista Galvez MD Unavailable [phone] Symone Sue MD Unavailable Mihir Henson OD Unavailable [phone] Carlos Frias DO Unavailable [phone] Triny Granados MD Unavailable [phone] Triny Granados MD Unavailable [phone] Miguel Angel Man MD PhD Unavailable Judson Foster Unavailable [phone] Allergies Active Allergy Reactions Criticality Noted Date [...] route every day 90 3 012 Active ngw-C4-kzg19-zinc -lox-fyju-kyt 600 mg calcium- 800 unit-50 mg tablet Take 1,200 mg by mouth daily Active atorvastatin (Lipitor) 20 mg tabletIndications :Ischemic heart disease due to coronary artery obstruction (CMS/HCC) ([facility]),Multiple-ty pe hyperlipidemia Take 1 tablet (20 mg [...] disease due to coronary artery obstruction (CMS/HCC) ([facility]),S/P AVR (aortic valve replacement) and aortoplasty Take [...] up to 3 doses. 25 tablet 11 025 Active tamsulosin (Flomax) 0.4 mg extended [...] disease due to coronary artery obstruction (CMS/HCC) ([facility]) Take 1 tablet (5 mg total) by [...] disease due to coronary artery obstruction (CMS/HCC) ([facility]) Take 1 tablet (81 mg total) by mouth daily 100 tablet 3 024 2024 Discontinued(R eorder) Active Problems Problem Noted Date Diagnosed Date Prostate cancer 07/29/2024 Overview (07/29/2024): New diagnosis July 25, 2024 Dr. Granados present on multiple core biopsies lesion score E. Prostate, right lateral apex, biopsy: - Adenocarcinoma, Wainscott score 7 (3+4), 10% Pattern 4, Grade group 2, involving 1 of 1 core, measuring 1 mm in combined dimension, 10% of total biopsy tissue. G. Prostate, left lateral base, biopsy: - Adenocarcinoma, Wainscott score 7 (4+3), 90% Pattern 4, Grade [...] 12/13/2023 Assessment & Plan (07/08/2024 4:00 PM METAL GRADER): Continue annual echocardiogram. History of adenomatous polyp of colon 06/20/2023 Overview (06/20/2023): Colonoscopy (+) tubular adenoma x2 recheck [address] Sue Spinal enthesopathy 05/22/2023 Family history of colon cancer 03/06/2023 Encounter for screening colonoscopy 03/06/2023 Prediabetes 11/02/2021 Other osteoporosis without current pathological fracture 02/09/2021 Overview (11/02/2021): The DEXA August 2021 on a new machine at [place] T-score spine not done because of-, Hip-1.3, femoral neck -2.3. 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 Assessment & Plan (10/18/2022 12:52 [...] up. Assessment & Plan (06/20/2023 10:34 PM METAL GRADER): >>ASSESSMENT AND PLAN FOR S/P AVR (AORTIC VALVE REPLACEMENT) AND AORTOPLASTY WRITTEN ON 10/19/2021 11:10 AM BY MARGARITO GALARZA MD Normal functioning bioprosthetic AVR Follow up Echo in 1 year. >>ASSESSMENT AND PLAN FOR AORTIC ROOT ANEURYSM (HCC) WRITTEN ON 10/19/2021 11:09 AM BY MARGARITO GALARZA MD No Aortic Root aneurysm by echo. Assessment & Plan (06/20/2023 10:34 PM METAL GRADER): >>ASSESSMENT AND PLAN FOR S/P AVR (AORTIC [...] anastomoses). Assessment & Plan (07/08/2024 4:01 PM METAL GRADER): Asymptomatic. Assessment & Plan (10/17/2023 4:16 PM [...] hips 12/14/2022 01/0 02/2024 Overview (12/14/2022): Follow-up Yao considering treatment Dysphagia, oropharyngeal phase 08/19/2020 04/30/2021 [...] 07/29/2020 04/30/2021 Coronary artery disease invo lving [place] coronary artery of [place] heart without angina pectoris 10/29/2019 04/30/2021 Assessment & Plan (10/20/2020 1:20 PM CDT): No angina. History of percutaneous coronary intervention 10/29/19 20 06/20/2023 Chronic sinusitis 04/23/2019 04/30/2021 Assessment & Plan (04/23/2019 11:49 AM METAL GRADER): CT Sinus Continue Flonase and Atrovent daily Add Sinus Rinse daily Follow up once CT Sinus available to discuss surgical options Blood allergy testing - call with results Head of Bed elevation 4 inches Allergic rhinitis 04/23/2019 04/30/2021 Assessment & Plan (04/23/2019 11:49 AM METAL GRADER): CT Sinus Continue Flonase and Atrovent daily Add Sinus Rinse daily Follow up once CT Sinus available to discuss surgical options Blood allergy testing - call with results Head of Bed elevation 4 inches Deviated nasal septum 04/23/20192020 Assessment & Plan (04/23/2019 11:50 AM METAL GRADER): CT Sinus History of heart attack 10/26/201312/11 Overview (09/14/2016): Myocardial infarction of inferoposterior wall Presence of stent in coronary artery 10/26/2013 01/03/2017 Overview (09/14/2016): Stented coronary artery Vitamin D deficiency 10/26/2013 021 Overview (09/14/2016): Vitamin D deficiency Encounters Date Type Department Care Team Description 08/01/2024 11:30 AM METAL GRADER Office Visit [facility] [address] [place] [phone] Ludmila Mabry MD BPH with elevated [...] fracture; Prediabetes; Immunization counseling 07/31/2024 1:12 PM METAL GRADER - 07/31/2024 11:59 PM METAL GRADER Hospital Encounter [facility] Imaging [address] [address] Lumbar radiculopathy Discharge Disposition: Discharge to home or self care 07/31/2024 1:12 PM METAL GRADER - 07/31/2024 11:59 PM METAL GRADER Hospital Encounter [facility] Imaging [address] [address] [address] Lumbar radiculopathy Discharge Disposition: Discharge to home or self care 07/29/2024 Telephone [facility] at [facility] [address] [address], [address] [place] [address] Adrian Theodore MD 2 week post op call 07/29/2024 Telephone [facility] [address] [place] [phone] Joe Juarez RN 07/28/2024 Results Follow-Up [facility] Medical [facility] [address] [place] [phone] Ludmila Mabry MD 07/26/2024 8:05 AM METAL GRADER Lab [facility] [address] [place] [address] Elevated PSA; Ischemic heart disease; Medication monitoring encounter; Other osteoporosis without current pathological fracture; Obesity (BMI 30-39.9) 07/23/2024 11:05 AM METAL GRADER - 07/23/2024 11:55 AM METAL GRADER Surgery [facility] Operating Room [address] [place] [address] Triny Granados MD TRANSRECTAL ULTRASOUND FUSION GUIDED PROSTATE BIOPSY 07/23/2024 10:51 AM METAL GRADER Anesthesia Event [facility] [address] [place] [address] Christiano Carney MD Reynolds, Ethan Emerson, MD 07/23/2024 8:37 AM METAL GRADER - 07/23/2024 12:56 PM METAL GRADER Hospital Encounter [facility] 1 [place] [address] Triny Granados MD Elevated PSA Discharge Disposition: Discharge to home or self care 07/16/2024 Orders Only [place] [facility] 5th [place] [address] [place] [address] Calista Galvez MD Osteopenia of multiple sites (Primary Dx) 07/15/2024 7:50 AM METAL GRADER - 07/15/2024 11:59 PM METAL GRADER Hospital Encounter [facility] at [address], [address] [place] [address] Adrian Theodore MD Cervicalgia (Primary Dx); Myalgia Discharge Disposition: Discharge to home or self care 07/11/2024 11:00 AM METAL GRADER Office Visit [facility] Neurosurgery [address] [place] [address] Medical Office Building [address] [place] [phone] Judson Foster PA Lumbar radiculopathy 07/11/2024 9:33 AM METAL GRADER - 07/11/2024 11:59 PM METAL GRADER Hospital Encounter [facility] Radiology [address] [place] [address] [address] [place] [address] Lumbar pain Discharge Disposition: Discharge to home or self care 07/11/2024 Telephone [facility] Neurosurgery [address] [place] [address] Medical Office Building [address] [place] [address] Judson Foster PA 07/08/2024 2:15 PM METAL GRADER Office Visit [place] [facility] Supervisor [address] [facility] [address] [place] [phone] Margarito Galarza MD S/p TAVR (transcatheter aortic valve replacement), bioprosthetic (Primary Dx); Ischemic heart disease due to coronary artery obstruction (CMS/HCC) (HCC); Mixed hyperlipidemia; S/P ascending aortic aneurysm repair 07/08/2024 1:00 PM METAL GRADER Ancillary Procedure [place] Complaint [facility] [address] [facility] [address] [place] [address] S/p TAVR (transcatheter aortic valve replacement), bioprosthetic 07/08/2024 Orders Only [place] Complaint Supervisor [id number] [place] [address] [address] [place] [address] Margarito Galarza MD S/P TAVR (transcatheter aortic valve replacement) (Primary Dx) 07/05/2024 Orders Only [facility] Neurosurgery [address] [facility] Medical Office Building [address] [place] [phone] Miguel Angel Man MD PhD Lumbar pain (Primary Dx) 06/21/2024 Telephone [facility] Medical Group [facility] [address] [place] [phone] Ludmila Mabry MD 06/21/2024 Telephone [facility] at [address], [address] [place] [address] Adrian Theodore MD POST CALL 06/20/2024 8:57 AM METAL GRADER - 06/20/2024 11:59 PM METAL GRADER Hospital Encounter [facility] Imaging and Radiology [address] [place] [address] Elevated prostate specific antigen (PSA) Discharge Disposition: Discharge to home or self care 06/19/2024 Telephone [facility] Scheduling [address] [place] [address] Chanel Horta 06/07/2024 9:34 AM METAL GRADER - 06/07/2024 11:59 PM METAL GRADER Hospital Encounter [facility] at [address], [address] [place] [phone] Adrian Theodore MD Lumbar radiculopathy (Primary Dx); Myalgia Discharge Disposition: Discharge to home or self care 06/07/2024 Telephone [facility] at [facility] [address] [facility] [address], [address] [place] [phone] Adrian Theodore MD 06/06/2024 Telephone [facility] at [facility] [address] [facility] [address], [address] [place] [phone] Adrian Theodore MD Eliquis hold verification 05/08/2024 8:50 AM METAL GRADER Lab [facility] [address] [place] [address] from Last 3 Months Immunizations Immunization Administration Dates Next Due Influenza, [...] 07/10/2017 Pneumococcal Polysaccharide PPV23 10/25/2019 Tdap 03/01/2012 Surgical History Surgery Date Site/Laterality Comments OTHER SURGICAL HISTORY 06/12/1960 - 06/11/1961 T & A OTHER SURGICAL HISTORY 06/12/1977 - 06/11/1978 ganglion right wrist KNEE ARTHROSCOPY 06/12/1999 - 06/11/2000 Left Arthroscopy knee AORTIC VALVE REPLACEMENT 10/24/2011 Dr. KLINE CORONARY ARTERY BYPASS GRAFT 10/24/2011 Dr. KLINE x3 CABG ASCENDING AORTIC ANEURYSM REPAIR 10/25/2011 Dr. KLINE aortic valve replacement, 3 vessel coronary bypass and aortic arch repair COLONOSCOPY 04/09/2013 (-) f Dr. Sykes CORONARY ANGIOPLASTY WITH STENT PLACEMENT 08/23/2011 Dr. Rich right coronary angioplasty (4 stents) CARDIAC CATHETERIZATION 09/22/2011 Dr. Rich ascending aortic aneurysm severe AI moderate aortic stenosis coronary disease x3 vessels COLONOSCOPY 05/18/2023 (+) Dr. Sue polyps x2 tubular adenoma,, sigmoid diverticulosis @ recheck 5 years CARDIAC VALVE REPLACEMENT 10/24/2011 TRANSCATHETER AORTIC VALVE REPLACEMENT 12/13/2023 Dr. Rich : successful TAVR [facility] Medical History Medical History Date Comments Acute myocardial infarction (HCC) 08/25/2011 angioplasty and right-sided coronary stent by Dr. Rich Chronic rhinitis Meniere disease ASHD (arteriosclerotic heart disease) AAA (abdominal aortic aneurysm) (HCC) Neck pain Low back pain Chronic pain disorder Arthritis Osteoporosis Hyperlipidemia Osteopenia of both hips 12/14/2022 Follow-u duyen Yao considering treatment Heart disease August 2011 Mixed conductive and sensori neural hearing loss 2006 Hypertension Enlarged prostate Cataract Aortic valve stenosis 10/17/2023 Family History Medical History Relation Name Comments Cancer Brother 1 Ulises Pancreatic canc er diagnosed stage IV Cancer Brother 2 Ulises Ashraf Colon cancer Child Alzheimer's disease Father Hardik Couch r COPD Father Hardik Ashraf Cancer Father Hardik Silvaer Hearing loss Father Hardik Ashraf Melanoma Father Hardik Ashraf Stroke Father Hardik Silvaer Clotting disorder Mother Megha Ashraf Other Mother Megha Ashraf bypas s Cancer Son Edi Ashraf Colon cancer Son Edi Ashraf Relation Name Status Comments Brother 1 Ulises Alive Brother 2 Ulises Ashraf Child Alive Father Hardik Ashraf Mother Megha Ashraf Son Edi Ashraf Social History Tobacco Use Types Packs/Day Years [...] on file Legal Sex Male 12:05 PM METAL GRADER Gender Identity Male 04/25/2020 6:16 AM METAL GRADER Sexual Orientation Straight 04/25/2020 6: 16 AM METAL GRADER 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 Not on file Not on file Not on file Obstetrics History Last Filed Vital Signs Vital Sign Reading Time Taken Comments Blood Pressure 106/60 08/01/2024 12:39 PM METAL GRADER Pulse 59 08/01/2024 12:39 PM METAL GRADER Temperature 36.3 C (97.3 F) 08/01/2024 12:39 PM METAL GRADER Respiratory Rate 16 08/01/2024 12:39 PM METAL GRADER Oxygen Saturation 97% 08/01/2024 12:39 PM METAL GRADER Inhaled Oxygen Concentration - - Weight 97.6 kg (215 lb 3.2 oz) 08/01/2024 12:39 PM METAL GRADER Height 177.8 cm (5' 10 ) 08/01/2024 12:39 PM METAL GRADER Body Mass Index 30.88 08/01/2024 12:39 PM METAL GRADER Plan of Treatment Health Maintenance Due Date Last Done Comments Zoster Vaccine (1 of 2) 2004 DTaP/Tdap/Td Vaccine (2 - Td or Tdap) 03/01/2022 03/01/2012 Covid-19 Vaccine (4 - 2023-2 5 season) 2024 04/26/2021, 09/02/2020, 08/13/2020 Depression Screening 01/22/2025 01/23/2024, 12/14/2022, 11/02/2021, Additional history exists Well Visit 65+ 01/22/2025 01/23/2024, 10/2022, 11/02/2021, Additional history exists Fall Risk Assessment 07/15/2025 07/15/2024, 07/14/2024, 06/07/2024, Additional history exists Colon Cancer Screening-Colonoscopy 05/18/2033 05/18/2023, 04/09/2013 Hepatitis C Screening Completed 12/21/2016 Pneumococcal vaccine 65+ Completed 10/25/2019, 06/13 Colon Cancer Screening-CT Colonography Discontinued 05/18/2023, 04/09/2013 Colon Cancer Screening-DNA Stool Discontinued 05/18/20, 04/09/2013 Colon Cancer Screening-FIT Discontinued 05/18/2023, Colon Cancer Screening-Sigmoidoscopy Discontinued 05/18/2023, 04/09/2013 Hepatitis B Screening Completed 01/23/2024 Influenza Vaccine Completed 04/12/2024, , 03/30/2023, Additional history exists Prostate Cancer Screening-PSA Discontinued , 05/08/2024, 01/23/2024, Additional history exists Goals Goal Patient Goal Type Associated Problems [...] home safety. Medical Devices Implanted Type Area Human Resources Project Coordinator Device Identifier Shelf Expiration Date Model / Serial / Lot [employer] Valve Aortic Trnscath Mainor 3 Ultra Resilia 26mm [id number] - [id number] - [id number] Implanted:Qty: 1 on 12/13/2023 by Avi Rich MD at [facility] Prosthetic Valve [employer] 11/04/2025 [id number] / [id number] / Description:Correct model nu mber [id number] Static magnetic field of 1.5 berny or 3 berny. Maximum spatial gradient field of 2500 gauss/cm (25 T/m) or less. Maximum MR system reported, whole body averaged specific absorption rate (LIA) of 2 W/kg (Normal Operating Mode Med[employer] Protege Gps Exprt 9mm .079in 20mm 120cm Otw Delivery System Self - [id number] Implanted:Qty: 1 on 12/13/2023 by Avi Rich MD at [facility] Stent Right: Common Femoral Artery Medtronic Inc 02/05/2026 [id number] 9-20-120 / / [id number] Esc[employer] V[employer] System Closure Repair Femoral Artery Suture Mediated Perclose Prostyle 85176-08 - [id number] Implanted:Qty: 1 on 12/13/2023 by Avi Rich MD at [facility] Right: Common Femoral Artery [employer] 09/09/2025 [id number] / / [id number] [employer] V[employer] System Closure Repair Femoral Artery Suture Mediated Perclose Prostyle 47554-25 - [id number] Implanted:Qty: 1 on 12/13/2023 by Avi Rich MD at [facility] Right: Common Femoral Artery [employer] 09/09/2025 31508-51 / / [id number] [employer] System Closure Repair Femoral Artery Suture Mediated Perclose Prostyle 07084-31 - [id number] Implanted:Qty: 1 on 12/13/2023 by Avi Rich MD at [facility] [employer] 09/09/2025 00066-86 / / [id number] [employer] V[employer] System Closure Repair Femoral Artery Suture Mediated Perclose Prostyle 39872-14 - [id number] Implanted:Qty: 1 on 12/13/2023 by Avi Rich MD at [facility] [employer] 09/09/2025 76830-74 / / [id number] [employer] Angio-Seal Vip 6fr Closere Device [id number] - [id number] Implanted:Qty: 1 on 12/13/2023 by Avi Rich MD at [facility] Right: Common Femoral Artery [employer] [id number] / / [employer] Angio-Seal Vip Bondek-Plus 8fr .038in 70cm Hemostatic Latex Free [id number] - [id number] Implanted:Qty: 1 on 12/13/2023 by Avi Rich MD at [facility] Right: Common Femoral Artery [employer] [id number] / / Escobar Vascular System Closure Repair Femoral Artery Suture Mediated Perclose Prostyle 11389-99 - [id number] Implanted:Qty: 1 on 12/13/2023 by Avi Rich MD at [facility] Right: Common Femoral Artery [employer] 09/09/2025 [id number] / / [id number] [employer] Angio-Seal Vip 6fr Closere Device 119010 - [id number] Implanted:Qty: 1 on 12/13/2023 by Avi Rich MD at [facility] Left: Common Femoral Artery [employer] [id number] / / Procedures Procedure Name Priority Date/Time Associated Diagnosis Comments MRI LUMBAR SPINE WO CONTRAST Schedule Routine, Read Routine (OP Routine) 07/31/2024 2:08 PM METAL GRADER Lumbar radiculopathy CT LUMBAR SPINE WO CONTRAST Schedule Routine, Read Routine (OP Routine) 07/31/2024 1:15 PM METAL GRADER Lumbar radiculopathy EGFR Routine 07/26/2024 8:03 AM METAL GRADER Ischemic heart disease Medication monitoring encounter TSH Routine 07/26/2024 8:03 AM METAL GRADER Ischemic heart disease Medication monitoring encounter Other osteoporosis without current pathological fracture Obesity (BMI 30-39.9) PRO B-TYPE NATRIURETIC PEPTIDE Routine 07/26/2024 8:03 AM METAL GRADER Ischemic heart disease Medication monitoring encounter CRP, HIGH SENSITIVITY Routine 07/26/2024 8:03 AM METAL GRADER Ischemic heart disease Medication monitoring encounter BASIC METABOLIC PANEL Routine 07/26/2024 8:03 AM METAL GRADER Ischemic heart disease Medication monitoring encounter LIPID PANEL Routine 07/26/2024 8:03 AM METAL GRADER Ischemic heart disease Medication monitoring encounter PSA DIAGNOSTIC Routine 07/26/2024 8:03 AM METAL GRADER Elevated PSA SURGICAL PATHOLOGY Routine 07/23/2024 2: 47 PM METAL GRADER Elevated PSA [place] AN ELECTIVE SUPRAGLOTTIC AIRWAY Routine 07/23/2024 11:04 AM METAL GRADER URONAV GUIDED PROSTATE BIOPSY 07/23/2024 10:50 AM METAL GRADER Elevated PSA Special Needs [facility] CONF#[id number] ECG 12-LEAD STAT 07/23/2024 9:04 AM METAL GRADER XR SCOLIOSIS 6 OR MORE VIEWS Schedule Routine, Read Routine (OP Routine) 07/11/2024 9:49 AM METAL GRADER Lumbar pain TRANSTHORACIC ECHO (TTE) COMPLETE W DOPPLER/CF WO CONTRAST Routine 07/08/2024 1:54 PM METAL GRADER S/p TAVR (transcatheter aortic valve replacement), bioprosthetic MRI PELVIS PROSTATE W WO CONTRAST Schedule Routine, Read Routine (OP Routine) 06/20/2024 10:35 AM METAL GRADER Elevated prostate specific antigen (PSA) PAIN MGMT IMAGING LUMBAR/CAUDAL EPIDURAL STEROID INJ Schedule Routine, Read Routine (OP Routine) 06/07/2024 10:40 AM METAL GRADER Lumbar radiculopathy PSA SCREEN Routine 05/08/2024 9:41 AM METAL GRADER COLONOSCOPY 05/18/2023 10:38 AM METAL GRADER HEPATITIS C ANTIBODY Routine 12/21/2016 7:27 AM CDT from Last 3 Months or Most Recently Relevant to Health Maintenance Results * MRI Lumbar Spine WO Contrast (07/31/2024 2:08 PM METAL GRADER) Anatomical Region Laterality Modality Spine N/A Magnetic Resonan ce 07/31/2024 2:17 PM METAL GRADER Impressions 07/31/2024 5:14 PM METAL GRADER Mild degenerative changes of the lumbar spine as described above. Findings are not significantly intervally progressed relative to comparison MRI dated 02/10/2023. Dictated by: Hank Zapata M.D. The radiology attending physician has personally reviewed this study, and had reviewed and/or edited this written report and agrees with it. Electronically signed by: Prasanth Estrada M.D. Narrative 07/31/2024 5:14 PM METAL GRADER EXAMINATION: Magnetic resonance imaging (MRI) of the [...] Lumbar Spine WO Contrast (07/31/2024 1:15 PM METAL GRADER) Anatomical Region Laterality Modality Spine N/A Computed Tomogra phy 07/31/2024 1:25 PM METAL GRADER Impressions 07/31/2024 1:40 PM METAL GRADER Mild degenerative changes of the lumbar spine [...] Prasanth Estrada M.D. Narrative 07/31/2024 1:40 PM METAL GRADER EXAMINATION: CT of the lumbar spine without [...] it. Electronically signed by: Prasanth Estrada M.D. us Judson CORDERO IMG CT PROCEDURES Octavia l Result * eGFR (07/26/2024 8:03 AM METAL GRADER) eGFR 67 >=60 mL/min/1. 73 m2 Comment: [...] Inclusion of Race in Diagnosing Kidney Disease, JASN 202). The CKD-EPI equation should not be used for patients with unstable renal function and has not been validated in children and those over 70. Current interpretive data was last reviewed 2021. Testing performed by: [facility], [address] [place] [address], [place]., [address] Blood 07/26/2024 8:03 AM METAL GRADER 07/26/2024 4:55 PM METAL GRADER us Ludmila Mabry MD LAB BLOOD ORDERABLES Final Result Performing Organization Address City/State/[facility] Co de Phone Number JUDYWWO VBP ([place]) [facility] Department of Laboratories [place] [id number] * Pro B-type natriuretic peptide (07/26/2024 8:03 AM METAL GRADER) NT-proBNP 120 <=300 pg/mL Comment: Interpretive Comments: [...] Eur Heart J. 2006:27:330-337. 2. Andrew RW, Amee UMANA. J. AM Emy Cardiol: Cardiovasc Imag. 2009;2: 216- 225. Interpretive Data Last Revised Date: 2018. Testing performed by: [facility], [address] [place] [address], [place]., [address] Blood 07/26/2024 8:03 AM METAL GRADER 07/26/2024 4:25 PM METAL GRADER Ludmila Mabry MD LAB BLOOD ORDERABLES Final Result [facility] ([place]) [address] [place] [address] * CRP (cardiac risk) (07/26/2024 8:03 AM METAL GRADER) hsCRP 0.51 mg/L Comment: Interpretive data Adult [...] last revised on 2018. Testing performed by: [facility], [address] [place] [address], [address] Blood 07/26/2024 8:03 AM METAL GRADER 07/26/2024 7:46 PM METAL GRADER us Ludmila Mabry MD LAB BLOOD ORDERABLES Final Result Performing Organization Address [facility] Co de Phone Number HOA GAYTAN ([place]) [address] [place] [address] * TSH (07/26/2024 8:03 AM METAL GRADER) Pathologist [facility] Thyroid Stimulating Hormone 2.65 0.30 - 4.20 mcIUnit/mL Comment:Testing performed by : [facility], [address] [place] [address]., [id number] Blood 07/26/2024 8:03 AM METAL GRADER 07/26/2024 4:25 PM METAL GRADER us Ludmila Mabry MD LAB BLOOD ORDERABLES Final Result Performing Organization Address City/[facility]/ZIP Co de Phone Number [facility] [place] ([place]) 1 [facility] [place] [address] * (ABNORMAL) PSA diagnostic (07/26/2024 8:03 AM METAL GRADER) PSA-Total 12.00(H) <=6.20 ng/mL Comment: Interpretive Data [...] data last revised 21. Testing performed by: [address] [address] Blood 07/26/2024 8:03 AM METAL GRADER 07/26/2024 4:25 PM METAL GRADER Ludmila Mabry MD LAB BLOOD ORDERABLES Final Result [facility] [place] ([place] 1 [facility] [place] [address] * Lipid panel (07/26/2024 8:03 AM METAL GRADER) Cholesterol 103 30 - 199 mg/dL Comment: [...] last revised on 2018. Testing performed by: [address] [address] Triglycerides 106 <=149 mg/dL [facility] ([place]) Comment: Interpretive Data Ages < or = [...] last revised on 2018. Testing performed by: [facility], [address] [place] [address]., [address] HDL 46 >=40 mg/dL HOA Fung ([place]) Comment: Interpretive Data Ages < [...] last revised on 2018. Testing performed by: [facility], [address] [place] [address]., [address] LDL, calculated 37 <=129 mg/dL [facility]AN ([place]) Comment: Interpretive [...] last revised on 2024. Testing performed by: [address] [address] Non-HDL Cholesterol 57 mg/dL HOA GAYTAN ([place] [...] last revised on 2018. Testing performed by: [address] [address] Chol/HDL ratio 2 CERNE R LUKAS ([place]) Comment:Testing performed by : [address] [address] Blood 07/26/2024 8:03 AM METAL GRADER 07/26/2024 4:25 PM METAL GRADER us Ludmila Mabry MD LAB BLOOD ORDERABLES Final Result [facility] ([place]) 1 [facility] Department [place] [address] * Basic metabolic panel (07/26/2024 8:03 AM METAL GRADER) Sodium 140 135 - 145 mmol/L Comment:Testing performed by : [address] [address] Potassium, pl 4.2 3.3 - 4.9 mmol/L [facility] ([place]) Comment:Testing performed by : [address] [address] Chloride 104 97 - 110 mmol/L HOA GAYTAN ([place]) Comment:Testing performed by : [facility], [address] [place] [address]., [address] CO2 25 22 - 32 mmol/L [facility] ([place]) Comment:Testing performed by : [facility], [address] [place] [address]., [address] Anion gap 11 2 - 15 mmol/L [facility] ([place]) Comment:Testing performed by : [facility], [address] [place] [address], [address] BUN 14 6 - 25 mg/dL [facility] ([place]) Comment:Testing performed by : [facility], [address] [place] [address], [address] Creatinine 1.17 0.80 - 1.30 mg/dL [facility] ([place]) Comment:Testing performed by : [address], [address] Glucose 102 70 - 199 mg/dL CERNER [...] was last revised 2022. Testing performed by: [facility], [address] [place] [address]., [address] Calcium 9.3 8.5 - 10.3 mg/dL [facility] ([place]) Comment:Testing performed by : [address] [address] Blood 07/26/2024 8:03 AM METAL GRADER 07/26/2024 4:25 PM METAL GRADER us Ludmial Mabry MD LAB BLOOD ORDERABLES Final Result [facility] [place] ([place]) 1 [facility] Department [place] [address] * Surgical pathology (07/23/2024 2:47 PM METAL GRADER) Tissue (Prostate, Needle Biopsy) 07/23/2024 10:54 AM METAL GRADER Tissue (Prostate, Needle Biopsy) 07/23/2024 10:54 AM METAL GRADER Tissue (Prostate, Needle Biopsy) 07/23/2024 10:54 AM METAL GRADER Tissue (Prostate, Needle Biopsy) 07/23/2024 10:54 AM METAL GRADER Tissue (Prostate, Needle Biopsy) 07/23/2024 10:54 AM METAL GRADER Tissue (Prostate, Needle Biopsy) 07/23/2024 10:54 AM METAL GRADER Tissue (Prostate, Needle Biopsy) 07/23/2024 10:54 AM METAL GRADER Tissue (Prostate, Needle Biopsy) 07/23/2024 10:54 AM METAL GRADER Tissue (Prostate, Needle Biopsy) 07/23/2024 10:54 AM METAL GRADER Tissue (Prostate, Needle Biopsy) 07/23/2024 10:54 AM METAL GRADER Tissue (Prostate, Needle Biopsy) 07/23/2024 10:54 AM METAL GRADER Tissue (Prostate, Needle Biopsy) 07/23/2024 10:54 AM METAL GRADER Tissue (Prostate, Needle Biopsy) 07/23/2024 10:56 AM METAL GRADER Tissue (Prostate, Needle Biopsy) 07/23/2024 11:03 AM METAL GRADER Narrative [facility] - 07/26/2024 9:49 AM METAL GRADER EPIC results best viewed via link to PDF [facility] Department of Pathology [address] [place] [address] Note to Patients: This report may contain [...] explain the details. Final Report Patient Name: SHIRA ASHRAF Address: [address] [place] [address] Gender: M : 1955 (Age: 69) Service: Surgery Location: REPLACED BY [facility] Hospital #: [id number] Patient Type: [facility] Taken: 07/23/2024 Received: 07/23/2024 Accessioned: 07/23/2024 Reported: [...] Prostate, left lateral base, biopsy: - Adenocarcinoma, Wainscott score 7 (4+3), 90% Pattern 4, Grade [...] region of interest 1, biopsy: - Adenocarcinoma, Wainscott score 7 (4+3), 60% Pattern 4, Grade [...] specimen is submitted in fourteen containers labeled SHIRA ASHRAF . A. The first container is [...] 0.7 and 1.2 cm. Entirely in N. T.Lupillo Richardson.N., P.A./Marli Marina M.D. REPORT IMAGES AND SCANNED DOCUMENTS, IF INCLUDED, ONLY VIEWABLE IN PDF VERSION OF REPORT The performance characteristics of some immunohistochemical stains, fluorescence in-situ hybridization tests and immunophenotyping by flow cytometry cited in this report (if any) were determined by the Surgical Pathology Department at [facility] as part of an ongoing quality assurance supervisor body program and in compliance with federally mandated [...] characteristics determined by the Surgical Pathology Department [facility]. It has not been cleared or approved by the U. S. Food and Drug Administration. Note for decalcified specimens: This assay has not been validated on decalcified tissues. Results should be interpreted with caution given the possibility of false negativity on decalcified specimens [facility] Otilio Granados MD LAB PATHOLOGY ORDERABLES Final Result Performing Organization Address City/State/[facility] Co de Phone Number PATHOLOGY [facility] [address] [phone] * [place] AN ELECTIVE SUPRAGLOTTIC AIRWAY (07/23/2024 11:04 AM METAL GRADER) Narrative Nancy Balderas CRNA - 07/23/2024 11:04 AM METAL GRADER Nancy Balderas CRNA 07/23/2024 11:04 AM Airway Patient location: OR Urgency: elective Indications for airway management: anesthesia and airway protection Difficult airway: no Staff: Placed by: WATER PUMP ASSEMBLER: Nancy Balderas CRNA Emergent airway documentation: Risks [...] * ECG 12 lead (07/23/2024 9:04 AM METAL GRADER) 07/23/2024 9:04 AM METAL GRADER Narrative [facility] - 07/23/2024 11:29 AM METAL GRADER Vent Rate: 67 bpm RR Interval: 887 msec [place] Interval: 213 msec QRS Duration: 107 msec QT Interval: 391 msec QTC Interval: 407 msec P-R-T [place]: 29 - 8 - 42 degrees IMPRESSION: [...] are no longer present Electronically Signed By: Avi Rich MD Raza Painting MD ECG ORDERABLES Final Result [facility] * XR Scoliosis 6 or More Views (07/11/2024 9:49 AM METAL GRADER) Anatomical Region Laterality Modality Spine N/A Computed Radiogr aphy 07/11/2024 10:3 6 AM METAL GRADER Impressions 07/11/2024 12:47 PM METAL GRADER 1. Mild long segment thoracolumbar dextrocurvature with [...] Fernando Bruce M.D. Narrative 07/11/2024 12:47 PM METAL GRADER EXAMINATION: XR SCOLIOSIS 6 OR MORE VIEWS [...] W DOPPLER/CF WO CONTRAST (07/08/2024 1:54 PM METAL GRADER) LV EF % CONS SCIMAGE Anatomical Region Laterality Modality Ultrasound 07/08/2024 1:03 PM METAL GRADER Narrative 07/08/2024 3:59 PM METAL GRADER [place] Complaint Supervisor- [facility] [address] [place] [address] Echocardiogram Report Patient Name: SHIRA ASHRAF E : 1955 Study Date: 07/08/2024 1:03:21 PM Gender: M Tech: AG Ref Provider: AVI RICH Height(Cm): 177.8 BSA: Weight(Kg): 96.2 Heart [...] bioprosthesis. Electronically Signed By: Margarito Galarza MD, [facility] 07/08/2024 3:58:36 PM METAL GRADER Procedure Note Margarito Galarza MD - 07/08/2024 [place] Complaint Supervisor- [facility] [address] [place] [address] Echocardiogram Report Patient Name: SHIRA ASHRAF E : 1955 Study Date: 07/08/2024 1:03:21 PM Gender: M Tech: AG Ref Provider: AVI RICH Height(Cm): 177.8 BSA: Weight(Kg): 96.2 Heart [...] valvebioprosthesis. Electronically Signed By: Margarito Galarza MD, [facility] 07/08/2024 3:58:36 PM METAL GRADER us Avi Rich MD CV ECHO PROCEDURES Final Result * MRI Pelvis Prostate W WO Contrast (06/20/2024 10:35 AM METAL GRADER) Anatomical Region Laterality Modality Body N/A Magnetic Resonan ce 06/20/2024 11:5 5 AM METAL GRADER Impressions 06/20/2024 2:33 PM METAL GRADER 1. A lesion in the midline anterior [...] Skyler Emmanuel M.D. Narrative 06/20/2024 2:33 PM METAL GRADER EXAMINATION: MAGNETIC RESONANCE IMAGING OF THE PELVIS [...] by: Skyler Emmanuel M.D. Triny Tavares MD IMG MRI PROCEDURES Final Resul t * Imaging Lumbar/Caudal Epidural Steroid INJ (21127) (06/07/2024 10:40 AM METAL GRADER) Narrative [facility] - 06/07/2024 10:40 AM METAL GRADER The images from this study are not interpreted by Radiology. Please refer to the physician's procedure / OR operative note. Adrian Theodore MD [facility] MGMT PROCEDURES Final Result [facility] * (ABNORMAL) PSA screen (05/08/2024 9:41 AM METAL GRADER) PSA-Total 6.19(H) <=5.40 ng/mL Comment: Interpretive Data [...] data last revised 21. Testing performed by: [facility], [address] [place] [address]., [address] Blood 05/08/2024 9:41 AM METAL GRADER 05/08/2024 9:41 AM METAL GRADER us Triny Tavares MD LAB BLOOD ORDERABLES Final Res ult [facility] 1 [facility] [place] [address] * COLONOSCOPY (05/18/2023 10:38 AM METAL GRADER) Anatomical Region Laterality Modality Other Narrative Procedure Note Symone Sue MD - 05/18/2023 10:38 AM CST [facility] Patient Name: Shira Ashraf Procedure Date: 05/18/2023 10:38 AM Date of : 1955 Admit Type: Outpatient Age: 67 Gender: Male Attending MD: Symone Sue M.D. [facility] 2 Note Status: Finalized Patient [...] procedure were verified by the physician, the adult education professional and the automotive exhaust emissions technician in the endoscopy suite. Mental Status [...] under direct vision. The Pediatric Colonoscope [id number] was introducedthrough the anus and advanced to [...] 10:38 AM Procedure Code(s): --- Professional --- 76860, Colonoscopy, flexible; with removal of tumor(s), polyp(s), or other lesion(s) by snare technique --- Technical --- 81692, Colonoscopy, flexible; with removal of tumor(s), polyp(s), [...] perforation orabscess without bleeding CPT copyright 2020 [employer]. All rights reserved. The codes documented in this report are preliminary and upon flare maker reviewmay be revised to meet current compliance requirements. Recognized by the [employer] for promoting quality in endoscopy us Symone Sue MD ENDOSCOPY PROCEDURES Final Resul t * Hepatitis C antibody (12/21/2016 7:27 AM CDT) Hep C Ab NON-REACTI VE NON-REACTI VE [facility] [place] SIGNAL TO CUT-OFF 0.10 <1.00 [facility] [place] 12/21/2016 7:27 AM CDT 12/21/2016 7:28 AM CDT Narrative [facility] - 12/22/2016 6:40 AM CDT FASTING:YES Resulting Agency Comment Performing Organization Information: Site ID: [id number] Name: [facility] Address: [address] [place] [address] [place] [id number] Director: Vivek Fulton D.O., MPH Ludmila Mabry MD LAB MICROBIOLOGY - GENERAL ORDERABLES Final Result [facility] [place] Peña from Last 3 Months or Most Recently Relevant to Health Maintenance Insurance [facility] MEDICARE SOLUTIONS MEDICARE SOLUTIONS MEDICARE SOLUTIONS Advance Directives For more information, please contact: [phone] Documents on File Type Date Recorded Patient Farmer General Expl anation ADVANCE DIRECTIVE 10/24/2020 DNR POLST [...] 10:11 AM 05/18/2023 10:11 AM Care Teams Mattress Maker Relationship Specialty Start Date End Date Ludmila Mabry MD PCP - General 10/14/11 Monster Kline MD [address] [place] [address] Thoracic Surgery 07/06/17 Carlos Galarza MD [address] [place] [address] Cardiology 07/10/17 Brandee Albright MD [address] [place] [address] Referring Physician Dermatology 01/16/19 Adrian Theodore MD [address] [place] [address] [address] [place] [address] Consulting Physician Pain Management 04/30/21 Calista Galvez MD [address] [facility] [address] [place] [address] Consulting Physician Bone Health 11/02/21 Symone Sue MD [address] [place] [address] [address] Consulting Physician Gastroenterology 12/14/22 Mihir Henson OD [address] [place] [address] Optometry 12/14/22 Carlos Frias DO [address] [place] [address] Consulting Physician Neurosurgery 12/14/22 Triny Granados MD [address] [place] [address] Consulting Physician Urology 07/29/24 Triny Granados MD [address] [place] [address] Consulting Physician Urology 08/01/24 Miguel Angel Man [place] PhD [address] [facility] [place] [address] Consulting Physician Neurosurgery 08/01/24 Judson Foster PA [address] NEUROLOGICAL SURGERY, [facility] [address] [place], [place] [id number] Physician Colorist Formulator Neurosurgery 08/01/24
--- OUTSIDE RECORDS SUMMARY | 2024-08-05 15:05 | XMS_ITS ---
Author Organization [facility] [address] Address [address] [place] [address] Phone Care Team Providers Care Motel Maid Name Role Phone Ludmila Mabry MD Primary Care Provider Monster Kline MD Unavailable [phone] Carlos Galarza MD Unavailable Brandee Albright MD Unavailable [phone] Adrian Theodore MD Unavailable Calista Galvez MD Unavailable [phone] Symone Sue MD Unavailable Mihir Henson OD Unavailable [phone] Carlos Frias DO Unavailable [phone] Triny Granados MD Unavailable [phone] Triny Granados MD Unavailable [phone] Miguel Angel Man MD PhD Unavailable Judson Foster Unavailable Active Problems Problem Noted Date Diagnosed Date Prostate cancer 07/29/2024 Overview (07/29/2024): New diagnosis July 25, 2024 Dr. Granados present on multiple core biopsies lesion score E. Prostate, right lateral apex, biopsy: - Adenocarcinoma, Belleville score 7 (3+4), 10% Pattern 4, Grade group 2, involving 1 of 1 core, measuring 1 mm in combined dimension, 10% of total biopsy tissue. G. Prostate, left lateral base, biopsy: - Adenocarcinoma, Belleville score 7 (4+3), 90% Pattern 4, Grade [...] 12/13/2023 Assessment & Plan (07/08/2024 4:00 PM DOGMAN/WOMAN): Continue annual echocardiogram. History of adenomatous polyp of colon 06/20/2023 Overview (06/20/2023): Colonoscopy (+) tubular adenoma x2 recheck [address] Sue Spinal enthesopathy 05/22/2023 Family history of colon cancer 03/06/2023 Encounter for screening colonoscopy 03/06/2023 Prediabetes 11/02/2021 Other osteoporosis without current pathological fracture 02/09/2021 Overview (11/02/2021): The DEXA August 2021 on a new machine at [place] T-score spine not done because of-, Hip-1.3, femoral neck -2.3. Wrist -2.6 DEXA (+) January 2021 AP LUMBAR SPINE L1-L4: Total BMD is 1.023 g/cm2 T-score is -0.6 LEFT HIP: Total BMD is 0.847 g/cm2 T-score is -1.2 Femoral neck BMD is 0.639 g/cm2 T-score is -2.1 [facility] current use of anticoagulant 1 DISH (diffuse idiopathic skeletal hyperostosis) 06/16/2020 Chronic [...] 69 Assessment & Plan (07/08/2024 4:01 PM DOGMAN/WOMAN): Continue atorvastatin. Assessment & Plan (10/18/2022 12:52 [...] up. Assessment & Plan (06/20/2023 10:34 PM DOGMAN/WOMAN): >>ASSESSMENT AND PLAN FOR S/P AVR (AORTIC VALVE REPLACEMENT) AND AORTOPLASTY WRITTEN ON 10/19/2021 11:10 AM BY MARGARITO GALARZA MD Normal functioning bioprosthetic AVR Follow up Echo in 1 year. >>ASSESSMENT AND PLAN FOR AORTIC ROOT ANEURYSM (HCC) WRITTEN ON 10/19/2021 11:09 AM BY MARGARITO GALARZA MD No Aortic Root aneurysm by echo. Assessment & Plan (06/20/2023 10:34 PM DOGMAN/WOMAN): >>ASSESSMENT AND PLAN FOR S/P AVR (AORTIC [...] anastomoses). Assessment & Plan (07/08/2024 4:01 PM DOGMAN/WOMAN): Asymptomatic. Assessment & Plan (10/17/2023 4:16 PM CDT): The patient has no symptoms of angina. His coronary status will be re-evaluated as part of the TAVR evaluation Assessment & Plan (10/18/2022 12:52 PM CDT): No angina. Continue ASA. Assessment & Plan (10/19/2021 11:08 AM CDT): Stable, No symptoms of angina, No changes Current Treatment and Therapy Plans No current plan information found. Past Treatment and Therapy Plans No past plan information found. Lifetime Dose Tracking * Chemical Lifetime Dose Automatic Entry Manual Entr y Fluoro Time 18.583 minutes 18.583 minutes 0 minutes Air kerma at the reference point (Ka,r) 3,020.33 mGy 5 6.33 mGy 2,964 mGy DLP 2,431 mGycm 2,431 mGycm 0 mGycm Resolved Problems Problem Noted Date Diagnosed Date [...] 07/29/2020 04/30/2021 Coronary artery disease invo lving kashia coronary artery of kashia heart without angina pectoris 10/29/2019 04/30/2021 Assessment & Plan (10/20/2020 1:20 PM CDT): No angina. History of percutaneous coronary intervention 10/29/19 20 06/20/2023 Chronic sinusitis 04/23/2019 04/30/2021 Assessment & Plan (04/23/2019 11:49 AM DOGMAN/WOMAN): CT Sinus Continue Flonase and Atrovent daily Add Sinus Rinse daily Follow up once CT Sinus available to discuss surgical options Blood allergy testing - call with results Head of Bed elevation 4 inches Allergic rhinitis 04/23/2019 04/30/2021 Assessment & Plan (04/23/2019 11:49 AM DOGMAN/WOMAN): CT Sinus Continue Flonase and Atrovent daily Add Sinus Rinse daily Follow up once CT Sinus available to discuss surgical options Blood allergy testing - call with results Head of Bed elevation 4 inches Deviated nasal septum 04/23/20192020 Assessment & Plan (04/23/2019 11:50 AM DOGMAN/WOMAN): CT Sinus History of heart attack 10/26/201312/11 Overview (09/14/2016): Myocardial infarction of inferoposterior wall Presence of stent in coronary artery 10/26/2013 01/03/2017 Overview (09/14/2016): Stented coronary artery Vitamin D deficiency 10/26/2013 021 Overview (09/14/2016): Vitamin D deficiency
== END 2024-08-05 13:12 | disposition home or self-care (01) ==
PROVIDERS: Visit Provider Urology
DX: C61 Malignant neoplasm of prostate (principal)
CPT/HCPCS: 78815; A9596